=== PATIENT | female | born 1945 | race Caucasian/White ===

== ENCOUNTER 2020-10-18 07:18 | Emergency (ER) | payer MEDICARE, OTHER ==
--- NOTE | 2020-10-18 07:28 | ERPHSYRPT ---
- History of Present Illness Time Seen by Provider: 10/18/20 07:27 Source: patient Exam Limitations: no limitations Physician History: This is a 75-year-old overweight white female who has a history of coronary artery disease and in 2008 underwent a three-vessel coronary artery bypass graft. She underwent a recent cardiac catheterization in September 26[address] Khalil. She states she also sees a metal hanging supervisor by the name of Dr. Duarte in [place]. One test they recommended was a sleep study which was performed last night. The respiratory therapist noticed that the patient had a low oxygenation level on room air while sleeping measuring approximately 58%. She was placed on BiPAP. The patient states that she actually slept very well on the BiPAP and feels comfortable on oxygen. They placed her on 2 L of oxygen via nasal cannula and patient arrived to the emergency department with an oxygen saturation level on 2 L of 97 to 98%. She denies chest pain. She has chronic shortness of air. There were no specific symptoms other than the shortness of air in combination with 58% room air oxygenation level during her sleep apnea study that brought the patient to the emergency department. The patient states that that may be she has a little swelling in her feet. She has had no fever she has no muscle aches and pains. Timing/Duration: other Activities at Onset: none Severity of Dyspnea-Max: mild Severity of Dyspnea-Current: mild Possible Cause: chronic episodes Modifying Factors: Improves With: activity, exertion, oxygen (Seem to improve her symptoms of shortness of breath) Associated Symptoms: denies symptoms Allergies/Adverse Reactions: nystatin Allergy (Verified 10/18/20 07:38) HIVES Ykyczfr-Gvl-Tjj Reductase Inhibitor Allergy (Verified 10/18/20 07:38) Home Medications: Amlodipine Besylate 5 mg [Norvasc 5 mg] 5 mg PO DAILY 10/18/20 [History] Apixaban [Eliquis] 5 mg PO DAILY 10/18/20 [History] Aspirin 81 gm Chew [Baby Aspirin 81 mg Chew] 81 mg PO DAILY 10/18/20 [History] Budesonide/Formoterol Fumarate [Symbicort 160-4.5 Mcg Inhaler] 10.2 gm IH DAILY PRN PRN 10/18/20 [History] Ipratropium [place] 0.5 mg [Atrovent 0.5MG NEBULE] 0.5 mg NEB DAILY PRN PRN 10/18/20 [History] Isosorbide Dinitrate 5 mg PO DAILY 10/18/20 [History] Travel Risk - International Travel Have you traveled outside of the country in past 3 weeks: No - Coronavirus Screening Are you exhibiting any of the following symptoms?: No Close contact with a COVID-19 positive Pt in past 14-21 Days: No - Review of Systems Constitutional: No Symptoms Eyes: No Symptoms Ears, Nose, & Throat: No Symptoms Respiratory: Dyspnea Cardiac: No Symptoms Abdominal/Gastrointestinal: No Symptoms Genitourinary Symptoms: No Symptoms Musculoskeletal: No Symptoms Skin: No Symptoms Neurological: No Symptoms Psychological: No Symptoms Endocrine: No Symptoms Hematologic/Lymphatic: No Symptoms Immunological/Allergic: No Symptoms All Other Systems: Reviewed and Negative - Past Medical History Pertinent Past Medical History: Yes Neurological History: No Pertinent History ENT History: No Pertinent History Cardiac History: Other Respiratory History: Asthma Endocrine Medical History: No Pertinent History Musculoskeletal History: Osteoarthritis, Rheumatoid Arthritis, Other GI Medical History: No Pertinent History History: No Pertinent History Psycho-Social History: No Pertinent History Female Reproductive Disorders: No Pertinent History Other Medical History: Psoriatic OA, CABG x3, gallbaldder and appendix removed, B TKA - Past Surgical History Past Surgical History: Yes - Nursing Vital Signs Nursing Vital Signs: Initial Vital Signs Temperature 98.2 F 10/18/20 07:26 Pulse Rate 75 10/18/20 07:26 Respiratory Rate 25 H 10/18/20 07:26 Blood Pressure 147/91 10/18/20 07:26 O2 Sat by Pulse Oximetry 98 10/18/20 07:26 Pain Scale Pain Intensity 4 - Physical Exam General Appearance: no apparent distress, alert, anxiety, obese Eye Exam: PERRL/EOMI, eyes nml inspection Ears, Nose, Throat Exam: hearing grossly normal, normal ENT inspection, normal pharynx Neck Exam: normal inspection, non-tender, supple, full range of motion Respiratory Exam: normal breath sounds, lungs clear, airway intact, No chest tenderness, No respiratory distress Cardiovascular/Chest Exam: normal heart sounds, regular rate/rhythm Abdominal/Gastrointestinal Exam: soft, normal bowel sounds, No tenderness Rectal Exam: deferred Extremity Exam: non-tender, normal range of motion, normal inspection, normal capillary refill, no calf tenderness, no pedal edema (On examination I do not appreciate any significant foot or ankle swelling.), pelvis stable Neurologic Exam: alert, oriented x 3, cooperative, warehouse trainer II-XII nml as tested, normal mood/affect, nml cerebellar function, nml station & gait, sensation nml Skin Exam: normal color, warm, dry Lymphatic Exam: No adenopathy SpO2 Interpretation: normal O2 Delivery: Nasal Cannula (2 liters) - Course Nursing assessment & vital signs reviewed: Yes EKG Interpreted by Me: RATE (82), A-fib, Other (On today's EKG there is nonspecific intraventricular conduction delay and low voltage in the precardial leads. When compared to EKG dated 10/27/2012, there is new atrial fibrillation.) Ordered Tests: Active Orders 24 hr Category Date Time Status Greenskeeper Laborer STAT Care 10/18/20 07:29 Active EKG-ER Only STAT Care 10/18/20 07:28 Active IV Insertion STAT Care 10/18/20 07:28 Active Pulse Oximetry (ED) STAT Care 10/18/20 07:28 Active CHEST 1 VIEW (PORTABLE) Stat Exams 10/18/20 07:28 Completed NECK WITH CONTRAST [CT] Stat Exams 10/18/20 08:46 Completed BLOOD CULTURE Stat Lab 10/18/20 07:50 Received CBC W DIFF Stat Lab 10/18/20 07:30 Completed CMP Stat Lab 10/18/20 07:30 Completed D-DIMER QUANTITATIVE Stat Lab 10/18/20 07:30 Completed INFLUENZA A+B DUSTY Stat Lab 10/18/20 07:45 Completed Lactic Acid Stat Lab 10/18/20 07:28 Completed NT PRO BNP Stat Lab 10/18/20 07:30 Completed PROTIME WITH INR Stat Lab 10/18/20 07:30 Completed TROPONIN Q3H Lab 10/18/20 07:30 Completed TROPONIN Q3H Lab 10/18/20 10:30 Ordered TROPONIN Q3H Lab 10/18/20 13:30 Ordered TROPONIN Q3H Lab 10/18/20 16:30 Ordered TROPONIN Q3H Lab 10/18/20 19:30 Ordered Medication Summary Discontinued Medications Generic Name Dose Route Start Last Admin Trade Name Freq PRN Reason Stop Dose Admin Furosemide 40 mg 10/18/20 09:26 10/18/20 10:33 Lasix 40 Mg/4 Ml IV 10/18/20 09:27 40 mg STAT ONE Administration Furosemide Confirm 10/18/20 10:31 Lasix 40 Mg/4 Ml Administered 10/18/20 10:32 Dose 40 mg .ROUTE .STK-MED ONE Lab/Rad Data: Laboratory Result Diagrams 10/18/20 07:30 10/18/20 07:30 Laboratory Results 10/18/20 10/18/20 10/18/20 Range/Units 07:45 07:30 07:30 WBC (4.0-10.5) K/mm3 RBC (4.1-5.4) M/mm3 Hgb (12.0-16.0) gm/dl Hct (35-47) % MCV (78-100) fl MCH (26-32) pg MCHC (32-36) g/dl RDW (11.5-14.0) % Plt Count (150-450) K/mm3 MPV (7.5-11.0) fl Gran % (36.0-66.0) % Eos # (Auto) (0-0.5) Absolute Lymphs (auto) (1.0-4.6) Absolute Monos (auto) (0.0-1.3) Lymphocytes % (24.0-44.0) % Monocytes % (0.0-12.0) % Eosinophils % (0.00-5.0) % Basophils % (0.0-0.4) % Absolute Granulocytes (1.4-6.9) Basophils # (0-0.4) PT 15.7 H (9.95-12.35) SECONDS INR 1.38 (0.8-3.0) D-Dimer 494 (215-500) ng/mL Sodium (137-145) mmol/L Potassium (3.5-5.1) mmol/L Chloride (98-107) mmol/L Carbon Dioxide (22-30) mmol/L Anion Gap (5-15) MEQ/L BUN (7-17) mg/dL Creatinine (0.52-1.04) mg/dL Estimated GFR ML/MIN Glucose (74-106) mg/dL Lactic Acid (0.4-2.0) Calcium (8.4-10.2) mg/dL Total Bilirubin (0.2-1.3) mg/dL AST (14-36) U/L ALT (0-35) U/L Alkaline Phosphatase (38-126) U/L Troponin I 0.019 (0.000-0.034) ng/mL NT-Pro-B Natriuret Pep (0-1800) pg/mL Serum Total Protein (6.3-8.2) g/dL Albumin (3.5-5.0) g/dL Influenza Type A Ag NEGATIVE (NEGATIVE) Influenza Type B Ag NEGATIVE (NEGATIVE) 10/18/20 10/18/20 10/18/20 Range/Units 07:30 07:30 07:28 WBC 7.1 (4.0-10.5) K/mm3 RBC 4.06 L (4.1-5.4) M/mm3 Hgb 12.2 (12.0-16.0) gm/dl Hct 38.8 (35-47) % MCV 95.6 (78-100) fl MCH 30.0 (26-32) pg MCHC 31.4 L (32-36) g/dl RDW 14.4 H (11.5-14.0) % Plt Count 204 (150-450) K/mm3 MPV 11.6 H (7.5-11.0) fl Gran % 57.6 (36.0-66.0) % Eos # (Auto) 0.33 (0-0.5) Absolute Lymphs (auto) 1.83 (1.0-4.6) Absolute Monos (auto) 0.78 (0.0-1.3) Lymphocytes % 26.0 (24.0-44.0) % Monocytes % 11.1 (0.0-12.0) % Eosinophils % 4.7 (0.00-5.0) % Basophils % 0.6 (0.0-0.4) % Absolute Granulocytes 4.07 (1.4-6.9) Basophils # 0.04 (0-0.4) PT (9.95-12.35) SECONDS INR (0.8-3.0) D-Dimer (215-500) ng/mL Sodium 139 (137-145) mmol/L Potassium 3.7 (3.5-5.1) mmol/L Chloride 102 (98-107) mmol/L Carbon Dioxide 33 H (22-30) mmol/L Anion Gap 7.7 (5-15) MEQ/L BUN 10 (7-17) mg/dL Creatinine 0.61 (0.52-1.04) mg/dL Estimated GFR > 60.0 ML/MIN Glucose 100 (74-106) mg/dL Lactic Acid 0.6 (0.4-2.0) Calcium 9.4 (8.4-10.2) mg/dL Total Bilirubin 1.00 (0.2-1.3) mg/dL AST 17 (14-36) U/L ALT 11 (0-35) U/L Alkaline Phosphatase 78 (38-126) U/L Troponin I (0.000-0.034) ng/mL NT-Pro-B Natriuret Pep 935 (0-1800) pg/mL Serum Total Protein 7.7 (6.3-8.2) g/dL Albumin 3.9 (3.5-5.0) g/dL Influenza Type A Ag (NEGATIVE) Influenza Type B Ag (NEGATIVE) - Progress Progress: improved, re-examined Air Movement: good Progress Note: 10/18/20 10:42 Chest x-ray shows new mild cardio megaly, possible new lingular infiltrate versus atelectasis with a tiny effusion. CAT scan of the neck with contrast reveals bilateral prominent palatine tonsils narrowing oropharynx, negative pathologic cervical/supraclavicular adenopathy, incompletely visualized patchy left upper lobe groundglass airspace disease 10/18/20 10:44 Medical decision making: This patient has coronary artery disease and asthma. She had a sleep study which showed hypoxia during her sleep requiring BiPAP. Patient is chronically short of breath. There may be a new lingular infiltrate present. We will treat this with antibiotics. Patient does not have numeric evidence of congestive heart failure but there are some mild changes on the chest x-ray and we provided the patient with a single 40 mg intravenous dose of Lasix. I ordered CAT scan of the neck with contrast for this patient. She had this test scheduled for tomorrow but because of her symptoms and the fact that she is here in the emergency department we ordered that test and I provided her with the results. If her second troponin is normal we will discharge her to home with instruction to follow-up with her press tool maker, metal hanging supervisor and primary care physician. Blood Culture(s) Obtained: Yes Antibiotics given: No Counseled pt/family regarding: lab results, diagnosis, need for follow-up, rad results - Departure Departure Disposition: Home Clinical Impression: Infiltrate of lung present on chest x-ray Condition: Stable Critical Care Time: No Referrals: ALEXIA MICHELE NP [Primary Care Provider] - Additional Instructions: Fill your new prescription. Take all your prescription medication as prescribed. Follow-up with your press tool maker, metal hanging supervisor and your primary care physician for further management and instructions. Prescriptions: Cefdinir 300 mg PO BID 7 Days #14 capsule
[2020-10-18 07:40] LABS: Absolute Neutrophil Ct (ANC) 4.07 (1.4-6.9); BASOPHIL % 0.6 % (0.0-0.4); Basophil (Absolute #) 0.04 (0-0.4); Eosinophil % 4.7 % (0.00-5.0); Eosinophil (Absolute #) 0.33 (0-0.5); Hematocrit 38.8 % (35-47); Hemoglobin 12.2 gm/dl (12.0-16.0); Lymphocyte (Absolute #) 1.83 (1.0-4.6); Mean Cell Volume 95.6 fl (78-100); Mean Corpuscular Hgb Concent. 31.4 g/dl (32-36); Mean Platelet Volume 11.6 fl (7.5-11.0); Monocyte (Absolute #) 0.78 (0.0-1.3); Monocytes % 11.1 % (0.0-12.0); Neutrophil % 57.6 % (36.0-66.0); Platelet Count 204 K/mm3 (150-450); Red Blood Count 4.06 M/mm3 (4.1-5.4); Red Cell Distribution Width 14.4 % (11.5-14.0); White Blood Count 7.1 K/mm3 (4.0-10.5)
[2020-10-18 07:59] LABS: INR 1.38 (0.8-3.0); PROTIME 15.7 SECONDS (9.95-12.35)
[2020-10-18 08:14] LABS: ALBUMIN 3.9 g/dL (3.5-5.0); ALKALINE PHOSPHATASE 78 U/L (38-126); ANION GAP 7.7 MEQ/L (5-15); BLOOD UREA NITROGEN 10 mg/dL (7-17); CHLORIDE 102 mmol/L (98-107); Calcium 9.4 mg/dL (8.4-10.2); Carbon Dioxide 33 mmol/L (22-30); Creatinine 1 0.61 mg/dL (0.52-1.04); EST GLOMERULAR FILTRATION RATE > 60.0 ML/MIN; Glucose 100 mg/dL (74-106); NT PRO BNP 935 pg/mL (0-1800); Potassium 3.7 mmol/L (3.5-5.1); SGOT/AST 17 U/L (14-36); SGPT/ALT 11 U/L (0-35); SODIUM 139 mmol/L (137-145); Total Protein 7.7 g/dL (6.3-8.2)
[2020-10-18 08:40] LABS: INFLUENZA A NEGATIVE (NEGATIVE); INFLUENZA B NEGATIVE (NEGATIVE)
--- NOTE | 2020-10-18 09:06 | XRAY ---
Indication: Short of breath. Comparison: October 04, 2020. Portable apical lordotic chest demonstrates new cardiomegaly with new lingula infiltrate versus atelectasis and tiny effusion. Remaining chest unchanged again with incidental tiny calcified granulomas, CABG surgery, osteopenia, and bony degenerative changes.
[2020-10-18] MEDS ORDERED: Lasix 40 MG/4 ML IV ONE (09:26)
--- NOTE | 2020-10-18 10:27 | XRAY ---
Indication: Neck pain. Bilateral neck nodules. Multiple contiguous axial images obtained through the neck using 80 cc Isovue 370 contrast. Bilateral cutaneous BBs placed over the region of interest. Comparison: None Left and right cutaneous BBs are seen at the level of the submandibular gland where there is no underlying solid/cystic mass or abnormal fluid collection. Scattered centimeter/subcentimeter cervical nodes seen bilaterally. No pathologic cervical or supraclavicular lymphadenopathy. Parotid and submandibular glands are bilaterally symmetric. Thyroid gland is unremarkable. Major arteries and veins are normal in course and caliber with mild bilateral carotid and left vertebral artery calcifications. Prominent bilateral palatine tonsils narrows the oropharynx. Remaining supra and infraglottic airway widely patent. Normal epiglottis. Cervical spine intact with mild osteopenia and mild/moderate C5-T1 degenerative changes. Base of the brain unremarkable. Visualized paranasal sinuses and mastoid air cells are clear. Lung apices demonstrates incompletely visualized patchy left upper lobe groundglass airspace opacity anteriorly. Impression: 1. Bilaterally prominent palatine tonsils narrows the oropharynx. 2. Negative pathologic cervical/supraclavicular lymphadenopathy. 3. Incompletely visualized patchy left upper lobe groundglass airspace disease. 4. Incidental osteopenia and C5-T1 degenerative changes.
[2020-10-18] MEDS ORDERED: Lasix 40 MG/4 ML ONE (10:31)
[2020-10-18 12:50] VITALS: BP 128/80; PULSE 79; O2SAT 91
== END 2020-10-18 13:18 | disposition home or self-care (01) ==
LOC: ED 07:18
DX: J18.9 Pneumonia, unspecified organism (principal); R09.02 Hypoxemia; I25.10 Atherosclerotic heart disease of native coronary artery without angina pectoris; Z95.1 Presence of aortocoronary bypass graft; Z79.899 Other long term (current) drug therapy; J45.909 Unspecified asthma, uncomplicated
CPT/HCPCS: 36000; 36415; 70491; 71045; 80053; 83605; 83880; 84484; 85025; 85379; 85610; 87040; 87400; 93005; 93041; 94760; 96374; 99284; J1940

== ENCOUNTER 2020-12-02 14:41 | Emergency (ER) | payer MEDICARE, OTHER ==
[2020-12-02 15:02] VITALS: O2SAT 99
--- NOTE | 2020-12-02 15:34 | XRAY ---
Indication: Left jewish/left neck pain. History of multiple falls. Multiple contiguous axial images obtained through the head without contrast. Comparison: None Age-appropriate global atrophy and moderate periventricular degenerative micro-ischemia bilaterally. No acute intracranial hemorrhage, abnormal extra-axial fluid collection, or mass effect. Fourth ventricle is midline without hydrocephalus. Bony calvarium intact. Visualized paranasal sinuses and mastoid air cells are clear. Impression: Nonacute senile brain.
--- NOTE | 2020-12-02 15:38 | XRAY ---
Indication: Headache and neck pain. Multiple contiguous ex images obtained through the cervical spine. Sagittal and coronal reformatted images obtained. Comparison: CT neck October 18, 2020. Osseous structures remain demineralized. Stable nonunited posterior arch C1, normal variant. Also stable minimal/mild C3- C7 degenerative endplate spurring and moderate multilevel bilateral degenerative facet hypertrophy. No acute fracture, suspicious bony lesions, or spinal canal stenosis. Sagittal and coronal reformatted images again demonstrates normal alignment with C5-C7 disc space narrowing and remote T3 superior endplate fracture. No acute compression fracture, subluxation, or jumped facet. Normal appearing query cervical junction. Visualized noncontrasted soft tissues again demonstrates mild bilateral carotid and distal left vertebral artery calcifications. Lung apices degraded by respiration artifact. Impression: 1. Stable osteopenia, multilevel degenerative changes, and remote T3 superior endplate fracture. 2. Negative acute fracture/subluxation.
--- NOTE | 2020-12-02 15:40 | ERPHSYRPT ---
- History of Present Illness Time Seen by Provider: 12/02/20 14:45 Patient Subjective Stated Complaint: Headache Triage Nursing Assessment: Patient ambulated back to ED and transferred self to bed. Patient A+o X3. Patient's skin pink, warm and dry. Patient complains of pain to back of left side of head that goes into her left ear and left jaw occasionally for the past week that has gotten worse. Patient's left eye noted to be red. Patient currently denies pain or discomfort. Physician History: 75 years old female with history of hypertension, hyperlipidemia, atrial fibrillation on Eliquis presented in the ER with chief complaint of left occipital/mastoid area sharp throbbing pain which last for 1 to 2 seconds off and on for 1 week. Patient reports occasionally she has pain in the left temporal area and also shoots in the left TMJ area as well. Patient reports having difficulty movements of jaw because of pain in the TMJ area. Denies any tinnitus, earache, visual disturbance, numbness tingling or focal weakness. Patient currently does not have any pain. She denies any chest pain palpitations or shortness of breath. Denies any associated nausea or vomiting. Patient does have some redness of left eye sclera which according to her it is improving now for the last 2 weeks without any visual symptoms. No pain in the eyeball. Timing/Duration: week(s) (1), intermittent, sudden, improved Quality: sharpness, throbbing Head Pain Location: occipital, parietal Severity of Pain-Max: severe Severity of Pain-Current: none Recent Head Trauma: no recent headache/trauma Associated Symptoms: facial pain, neck pain, No numbness in legs/feet, No sinus infection, No sensitive to light, No speech problems, No stiff neck, No vision changes, No visual disturbance, No weakness Previous symptoms: no prior history Allergies/Adverse Reactions: nystatin Allergy (Verified 12/02/20 14:55) HIVES Abrzgeq-Qro-Uke Reductase Inhibitor Allergy (Verified 12/02/20 14:55) Home Medications: Amlodipine Besylate 5 mg [Norvasc 5 mg] 5 mg PO DAILY 10/18/20 [History] Apixaban [Eliquis] 5 mg PO DAILY 10/18/20 [History] Aspirin 81 gm Chew [Baby Aspirin 81 mg Chew] 81 mg PO DAILY 10/18/20 [History] Isosorbide Dinitrate 30 mg PO DAILY 10/18/20 [History] Ezetimibe 10 mg [Zetia 10 MG] 10 mg PO DAILY 12/02/20 [History] Furosemide 40 mg [Lasix 40 MG] 40 mg PO DAILY 12/02/20 [History] Metoprolol Tartrate 25 mg [Lopressor 25MG Tab] 25 mg PO DAILY 12/02/20 [History] Omeprazole 20 mg PO BID 12/02/20 [History] Potassium Chloride 10 Meq Tab* [Klor Con 10 MEQ] 10 meq PO DAILY 12/02/20 [History] Hx Tetanus, Diphtheria Vaccination/Date Given: Yes Hx Influenza Vaccination/Date Given: No Hx Pneumococcal Vaccination/Date Given: Yes Immunizations Up to Date: Yes Travel Risk - International Travel Have you traveled outside of the country in past 3 weeks: No - Coronavirus Screening Are you exhibiting any of the following symptoms?: No Close contact with a COVID-19 positive Pt in past 14-21 Days: No - Review of Systems Constitutional: No Symptoms Eyes: Eye Redness Ears, Nose, & Throat: No Symptoms Respiratory: No Symptoms Cardiac: No Symptoms Abdominal/Gastrointestinal: No Symptoms Genitourinary Symptoms: No Symptoms Musculoskeletal: Neck Pain Skin: No Symptoms Neurological: Headache Psychological: No Symptoms Endocrine: No Symptoms Hematologic/Lymphatic: No Symptoms Immunological/Allergic: No Symptoms - Past Medical History Pertinent Past Medical History: Yes Neurological History: No Pertinent History ENT History: No Pertinent History Cardiac History: Other Respiratory History: Asthma Endocrine Medical History: No Pertinent History Musculoskeletal History: Osteoarthritis, Rheumatoid Arthritis, Other GI Medical History: No Pertinent History History: No Pertinent History Psycho-Social History: No Pertinent History Female Reproductive Disorders: No Pertinent History Other Medical History: Psoriatic OA, CABG x3, gallbaldder and appendix removed, B TKA - Past Surgical History Past Surgical History: Yes Cardiac: CABG, Cardiac Catheterization Gastrointestinal: Appendectomy, Cholecystectomy, Hernia Repair Musculoskeletal: Joint Replacement, Orthopedic Surgery Female Surgical History: Hysterectomy, Section Other Surgical History: bilateral knees, L wrist with plate - Social History Smoking Status: Never smoker Exposure to second hand smoke: No Drug Use: none Patient Lives Alone: No - Female History Hx Now: No - Nursing Vital Signs Nursing Vital Signs: Initial Vital Signs Temperature 98.1 F 12/02/20 14:55 Pulse Rate 68 12/02/20 14:55 Respiratory Rate 18 12/02/20 14:55 Blood Pressure 142/100 12/02/20 14:55 O2 Sat by Pulse Oximetry 99 12/02/20 14:55 Pain Scale Pain Intensity 0 - Physical Exam General Appearance: no apparent distress, alert Eye Exam: PERRL/EOMI, other (Mild subconjunctival hemorrhage in the left eyeball above the cornea) Ears, Nose, Throat Exam: normal ENT inspection, TMs normal, pharynx normal, other (Tenderness left TMJ on palpation with no click) Neck Exam: normal inspection, supple, full range of motion, other (Minimal tenderness in the left upper lateral neck muscles around mastoid area), No Brudzinski, No Kernig's, No midline tenderness Respiratory Exam: normal breath sounds, lungs clear Cardiovascular Exam: normal heart sounds, irregular Gastrointestinal/Abdominal Exam: soft, normal bowel sounds, No tenderness Back Exam: normal inspection, normal range of motion Extremity Exam: normal inspection, normal range of motion Mental Status Exam: alert, oriented x 3, cooperative bee tender Exam: normal hearing, normal speech, PERRL Coordination/Gait Exam: normal finger to nose, normal gait, normal cerebellar function, negative Romberg's sign Motor/Sensory Exam: no motor deficit, no sensory deficit, no pronator drift, negative Babinski's sign DTR Exam: bicep (R): 2+, bicep (L): 2+, knee (R): 2+, knee (L): 2+ Skin Exam: normal color Lymphatic Exam: adenopathy SpO2 Interpretation: normal SpO2: 99 O2 Delivery: Room Air Ordered Tests: Active Orders 24 hr Category Date Time Status CERVICAL SPINE WO CONTRAST [CT] Stat Exams 12/02/20 15:12 Completed HEAD WITHOUT CONTRAST [CT] Stat Exams 12/02/20 15:12 Completed - Progress Progress: re-examined Air Movement: good Progress Note: 12/02/20 16:22 75 years old is evaluated for left upper neck/mastoid area pain and some pain in the left temporal mandibular joint area. I have obtained CT head neck which is negative for any acute findings. I believe patient has some TMJ dysfunction and recommended outpatient dental follow-up. She also has some pain probably related to neck muscles. Recommended Tylenol. She does not have any chest pain palpitations or shortness of breath. This seems to be musculoskeletal pain, do not think cardiac in nature at all. This point do not think patient needs any other work-up and is stable for discharge with outpatient follow-up. Blood Culture(s) Obtained: No Antibiotics given: No Counseled pt/family regarding: diagnosis, need for follow-up, rad results - Departure Departure Disposition: Home Clinical Impression: Neck pain, TMJ pain dysfunction syndrome Condition: Stable Critical Care Time: No Referrals: ALEXIA MICHELE NP [Primary Care Provider] - Follow Up with PCP/3 days MEAGHAN BISWAS DDS [NON-STAFF PHY W/O PRIVILEGES] - (Call for appointment early next week) Instructions: Headache, Adult (DC) Additional Instructions: Take Tylenol as needed for pain. Follow-up with primary care and dentist for reevaluation. Do not take any NSAIDs like ibuprofen/Aleve etc. as it increases risk of bleeding being on Eliquis and aspirin. Return to ER for worsening pain, headache, difficulty movements of neck etc.
[2020-12-02 16:17] VITALS: BP 116/67; PULSE 61
== END 2020-12-02 16:32 | disposition home or self-care (01) ==
LOC: ED 14:41
DX: M54.2 Cervicalgia (principal); M26.69 Other specified disorders of temporomandibular joint; I10 Essential (primary) hypertension; E78.5 Hyperlipidemia, unspecified; I48.91 Unspecified atrial fibrillation; Z79.01 Long term (current) use of anticoagulants; R51.9 Headache, unspecified; Z79.899 Other long term (current) drug therapy; Z98.61 Coronary angioplasty status; Z95.1 Presence of aortocoronary bypass graft
CPT/HCPCS: 70450; 72125; 99283

== ENCOUNTER 2024-02-04 18:39 | Observation (INO) | payer MEDICARE, OTHER ==
[2024-02-04 19:16] LABS: Absolute Neutrophil Ct (ANC) 5.68 x10^3/uL (1.4-6.9); BASOPHIL % 0.8 % (0.0-0.4); Basophil (Absolute #) 0.07 x10^3/uL (0-0.4); Eosinophil % 4.2 % (0.00-5.0); Eosinophil (Absolute #) 0.36 x10^3/uL (0-0.5); Hematocrit 38.9 % (35-47); Hemoglobin 12.8 g/dL (12.0-16.0); IMMATURE GRAN # 0.03 x10^3u/L (0.00-0.03); IMMATURE GRAN % 0.3 % (0.00-0.4); Lymphocyte (Absolute #) 1.72 x10^3/uL (1.0-4.6); Lymphocytes % 19.9 % (24.0-44.0); Mean Cell Volume 91.1 fL (78-100); Mean Corpuscular Hgb Concent. 32.9 g/dL (32-36); Mean Platelet Volume 11.1 fL (7.5-11.0); Monocyte (Absolute #) 0.77 x10^3/uL (0.0-1.3); Monocytes % 8.9 % (0.0-12.0); Neutrophil % 65.9 % (36.0-66.0); Platelet Count 207 x10^3/uL (150-450); Red Blood Count 4.27 x10^6/uL (4.1-5.4); White Blood Count 8.6 x10^3/uL (4.0-10.5)
[2024-02-04 19:29] LABS: ALBUMIN 4.2 g/dL (3.5-5.0); ANION GAP 12.7 MEQ/L (5-15); BILIRUBIN,TOTAL 1.3 mg/dL (0.2-1.3); Calcium 9.8 mg/dL (8.4-10.2); Creatinine 1 1.07 mg/dL (0.52-1.04); EST GLOMERULAR FILTRATION RATE 52.8 ML/MIN; Potassium 3.5 mmol/L (3.5-5.1); Total Protein 8.1 g/dL (6.3-8.2)
--- NOTE | 2024-02-04 20:20 | ERPHSYRPT ---
- History of Present Illness Time Seen by Provider: 02/04/24 18:50 Source: patient Exam Limitations: no limitations Patient Subjective Stated Complaint: BACK PAIN Triage Nursing Assessment: PATIENT REPORTS TO ER WITH COMPLAINTS OF BACK PAIN WHICH STARTED ABOUT A MONTH AGO. PATIENT RATING THE PAIN 8/10 AT THIS TIME TO LEFT SHOULDER/MID BACK. PATIENT WAS SEEN BY PCP AND HOSPITAL IN [place] BUT RELOCATED TO THIS AREA THIS PAST WEEKEND. PATIENT WAS PRESCRIBED PO PRN TORADOL FOR THE PAIN IN [place] AND STATES SHE TOOK HER LAST PILL YESTERDAY AND TODAY THE PAIN HAS BEEN HORRIBLE. PATIENT PRESENTS WITH FACIAL GRIMACING AND STATES SHE CANNOT LAY DOWN ON THE BED. PATIENT SITTING UPRIGHT 90 DEGREES. PATIENT REPORTS SHE HAS BEEN SLEEPING SITTING UPRIGHT IN [facility]CL[facility] OVER THE LAST MONTH. PATIENT STATES THAT SHE HAD CHEST X RAY SHOWING "LUNG SWELLING" WHILE IN [place] WHEN CHEST PAIN FIRST STARTED. PATIENT DOES APPEAR TO BE SHORT OF BREATH BUT REPORTS THAT SHE IS NORMALLY SHORT OF BREATH AFTER EXERTION. O2 SATS 95% ON ROOM AIR. PATIENT IS ALERT & ORIENTED X 3 AND AMBULATED WITH STAND BY ASSIST. Physician History: Patient is a 78-year-old female presents to our ED as a referral from [facility] for a CTA chest. Patient went to [facility] today for back pain. Patient was observed to be short of breath. Patient has not been taking her anticoagulation medication as prescribed. No associated nausea vomiting diaphoresis. Patient voices no other complaints or concerns at this time. Portions of this note were created with voice recognition technology. There may be grammatical, spelling, punctuation or sound alike errors \\ Timing/Duration: today Severity: moderate Modifying Factors: Improves With: nothing Associated Symptoms: denies symptoms Allergies/Adverse Reactions: carvedilol Allergy (Verified 02/04/24 19:00) nystatin Allergy (Verified 02/04/24 18:57) HIVES simvastatin [From Zocor] Allergy (Verified 02/04/24 19:00) Yrplhes-IMW-LsR Reductase Inhibitor [Dvqdfob-Fbv-Ihj Reductase Inhibitor] Allergy (Verified 02/04/24 18:57) Home Medications: Amlodipine Besylate 5 mg [Norvasc 5 mg] 5 mg PO DAILY 10/18/20 [History] Apixaban [Eliquis] 5 mg PO DAILY 10/18/20 [History] Aspirin 81 gm Chew [Baby Aspirin 81 mg Chew] 81 mg PO DAILY 10/18/20 [History] Isosorbide Dinitrate 30 mg PO DAILY 10/18/20 [History] Ezetimibe 10 mg [Zetia 10 MG] 10 mg PO DAILY 12/02/20 [History] Furosemide 40 mg [Lasix 40 MG] 40 mg PO DAILY 12/02/20 [History] Metoprolol Tartrate 25 mg [Lopressor 25MG Tab] 25 mg PO DAILY 12/02/20 [History] Omeprazole 20 mg PO BID 12/02/20 [History] Potassium Chloride Tab* [Klor Con] 10 meq PO DAILY 12/02/20 [History] Hx Tetanus, Diphtheria Vaccination/Date Given: Yes Hx Influenza Vaccination/Date Given: No Hx Pneumococcal Vaccination/Date Given: No Travel Risk - International Travel Have you traveled outside of the country in past 3 weeks: No - Emerging Infectious Disease Are you exhibiting symptoms associated with any current EIDs: No - Review of Systems Constitutional: No Symptoms, No Fever, No Chills Eyes: No Symptoms Ears, Nose, & Throat: No Symptoms Respiratory: No Symptoms, No Cough, No Dyspnea Cardiac: No Symptoms, No Chest Pain, No Edema, No Syncope Abdominal/Gastrointestinal: No Symptoms, No Abdominal Pain, No Nausea, No V omiting, No Diarrhea Genitourinary Symptoms: No Symptoms, No Dysuria Musculoskeletal: No Symptoms, No Back Pain, No Neck Pain Skin: No Symptoms, No Rash Neurological: No Symptoms, No Dizziness, No Focal Weakness, No Sensory Changes Psychological: No Symptoms Endocrine: No Symptoms Hematologic/Lymphatic: No Symptoms Immunological/Allergic: No Symptoms All Other Systems: Reviewed and Negative - Past Medical History Pertinent Past Medical History: Yes Neurological History: No Pertinent History ENT History: No Pertinent History Cardiac History: Congestive Heart Failure, High Cholesterol, Hypertension, Other Respiratory History: Asthma Endocrine Medical History: No Pertinent History Musculoskeletal History: Osteoarthritis, Rheumatoid Arthritis, Other GI Medical History: No Pertinent History History: No Pertinent History Psycho-Social History: No Pertinent History Female Reproductive Disorders: No Pertinent History Other Medical History: Psoriatic OA, CABG x3, gallbaldder and appendix removed, B TKA - Past Surgical History Past Surgical History: Yes Cardiac: CABG, Cardiac Catheterization Gastrointestinal: Appendectomy, Cholecystectomy, Hernia Repair Musculoskeletal: Joint Replacement, Orthopedic Surgery Female Surgical History: Hysterectomy, Section Other Surgical History: bilateral knees, L wrist with plate - Social History Smoking Status: Never smoker Exposure to second hand smoke: No Drug Use: none Patient Lives Alone: No - Nursing Vital Signs Nursing Vital Signs: Initial Vital Signs Temperature 98.7 F 02/04/24 18:46 Pulse Rate 77 02/04/24 18:46 Respiratory Rate 22 02/04/24 18:46 Blood Pressure 182/83 02/04/24 18:46 O2 Sat by Pulse Oximetry 93 L 02/04/24 18:46 Pain Scale Pain Intensity 8 - Physical Exam General Appearance: no apparent distress, alert Eye Exam: PERRL/EOMI, eyes nml inspection Ears, Nose, Throat Exam: normal ENT inspection, TMs normal, pharynx normal, moist mucous membranes Neck Exam: normal inspection, non-tender, supple, full range of motion Respiratory Exam: normal breath sounds, lungs clear, airway intact, No respiratory distress Cardiovascular Exam: regular rate/rhythm, normal heart sounds, normal peripheral pulses Gastrointestinal/Abdomen Exam: soft, normal bowel sounds, No tenderness, No mass Back Exam: normal inspection, normal range of motion, No CVA tenderness, No vertebral tenderness Extremity Exam: normal inspection, normal range of motion, pelvis stable Neurologic Exam: alert, oriented x 3, cooperative, normal mood/affect, sensation nml, No motor deficits Skin Exam: normal color, warm, dry, No rash Lymphatic Exam: No adenopathy SpO2 Interpretation: normal SpO2: 94 O2 Delivery: Room Air - Course Nursing assessment & vital signs reviewed: Yes EKG Interpreted by Me: RATE (69), A-fib, NORMAL AXIS, NORMAL INTERVALS - CT Exams Chest CT Interpretation: Tele-radiologist Report (No comps. Negative PE. Prominent left and right main pulmonary arteries up to 3.3 cm favors pulmonary hypertension. Cardiomegaly without CHF. Small hiatal hernia) Ordered Tests: Active Orders 24 hr Category Date Time Status [employer] STAT Care 02/04/24 18:58 Active EKG-ER Only STAT Care 02/04/24 18:56 Active IV Insertion STAT Care 02/04/24 18:56 Active Pulse Oximetry (ED) STAT Care 02/04/24 18:56 Active CHEST WITH CONTRAST [CT] Stat Exams 02/04/24 18:57 Taken CBC W DIFF Stat Lab 02/04/24 19:10 Completed CMP Stat Lab 02/04/24 19:10 Completed TROPONIN Q4H Lab 02/04/24 19:10 Completed TROPONIN Q4H Lab 02/04/24 22:15 Completed TROPONIN Q4H Lab 02/05/24 03:00 Ordered UA W/RFX UR CULTURE Stat Lab 02/04/24 20:30 Completed Transfer Order Routine Transfer 02/04/24 Ordered Medication Summary Discontinued Medications Generic Name Dose Route Start Last Admin Trade Name Maynor PRN Reason Stop Dose Admin Ketorolac Tromethamine 30 mg 02/04/24 21:12 02/04/24 21:14 Ketorolac Tromethamine 30 Mg/Ml Inj IV 02/04/24 21:13 30 mg STAT ONE Administration Ketorolac Tromethamine Confirm 02/04/24 21:13 Ketorolac Tromethamine 30 Mg/Ml Inj Administered 02/04/24 21:14 Dose 30 mg .ROUTE .[employer] ONE Lab/Rad Data: Laboratory Result Diagrams 02/04/24 19:10 02/04/24 19:10 Laboratory Results 02/04/24 02/04/24 02/04/24 Range/Units 22:15 20:30 19:10 WBC (4.0-10.5) x10^3/uL RBC (4.1-5.4) x10^6/uL Hgb (12.0-16.0) g/dL Hct (35-47) % MCV (78-100) fL MCH (26-32) pg MCHC (32-36) g/dL RDW (11.5-14.0) % Plt Count (150-450) x10^3/uL MPV (7.5-11.0) fL Gran % (36.0-66.0) % Immature Gran % (Auto) (0.00-0.4) % Nucleat RBC Rel Count (0.00-0.1) % Eos # (Auto) (0-0.5) x10^3/uL Immature Gran # (Auto) (0.00-0.03) x10^3u/L Absolute Lymphs (auto) (1.0-4.6) x10^3/uL Absolute Monos (auto) (0.0-1.3) x10^3/uL Absolute Nucleated RBC (0.00-0.01) x10^3u/L Lymphocytes % (24.0-44.0) % Monocytes % (0.0-12.0) % Eosinophils % (0.00-5.0) % Basophils % (0.0-0.4) % Absolute Granulocytes (1.4-6.9) x10^3/uL Basophils # (0-0.4) x10^3/uL Sodium (135-145) mmol/L Potassium (3.5-5.1) mmol/L Chloride (98-107) mmol/L Carbon Dioxide (22-30) mmol/L Anion Gap (5-15) MEQ/L BUN (7-17) mg/dL Creatinine (0.52-1.04) mg/dL Estimated GFR ML/MIN Glucose (74-106) mg/dL Calcium (8.4-10.2) mg/dL Total Bilirubin (0.2-1.3) mg/dL AST (14-36) U/L ALT (0-35) U/L Alkaline Phosphatase (38-126) U/L Troponin I 0.018 0.016 (0.000-0.033) ng/mL Serum Total Protein (6.3-8.2) g/dL Albumin (3.5-5.0) g/dL Urine Color Yellow (Yellow) Urine Appearance Clear (Clear) Urine pH 7.0 (4.6-8.0) Ur Specific [place] 1.010 (1.005-1.030) Urine Protein Negative (Negative) Urine Glucose (UA) Negative (Negative) mg/dL Urine Ketones Trace A (Negative) Urine Blood Negative (Negative) Urine Nitrite Negative (Negative) Urine Bilirubin Negative (Negative) Urine Urobilinogen 0.2 (0.2) mg/dL Ur Leukocyte Esterase Negative (Negative) U Hyaline Cast (Auto) NONE SEEN (0-2) /LPF Urine Microscopic RBC 0-2 (0-5) /HPF Urine Microscopic WBC 0-2 (0-5) /HPF Ur Epithelial Cells None Seen (None Seen) /HPF Urine Bacteria None Seen (None Seen) /HPF Urine Culture Reflexed NO (NO) 02/04/24 02/04/24 Range/Units 19:10 19:10 WBC 8.6 (4.0-10.5) x10^3/uL RBC 4.27 (4.1-5.4) x10^6/uL Hgb 12.8 (12.0-16.0) g/dL Hct 38.9 (35-47) % MCV 91.1 (78-100) fL MCH 30.0 (26-32) pg MCHC 32.9 (32-36) g/dL RDW 14.0 (11.5-14.0) % Plt Count 207 (150-450) x10^3/uL MPV 11.1 H (7.5-11.0) fL Gran % 65.9 (36.0-66.0) % Immature Gran % (Auto) 0.3 (0.00-0.4) % Nucleat RBC Rel Count 0.0 (0.00-0.1) % Eos # (Auto) 0.36 (0-0.5) x10^3/uL Immature Gran # (Auto) 0.03 (0.00-0.03) x10^3u/L Absolute Lymphs (auto) 1.72 (1.0-4.6) x10^3/uL Absolute Monos (auto) 0.77 (0.0-1.3) x10^3/uL Absolute Nucleated RBC 0.00 (0.00-0.01) x10^3u/L Lymphocytes % 19.9 L (24.0-44.0) % Monocytes % 8.9 (0.0-12.0) % Eosinophils % 4.2 (0.00-5.0) % Basophils % 0.8 (0.0-0.4) % Absolute Granulocytes 5.68 (1.4-6.9) x10^3/uL Basophils # 0.07 (0-0.4) x10^3/uL Sodium 141 (135-145) mmol/L Potassium 3.5 (3.5-5.1) mmol/L Chloride 104 (98-107) mmol/L Carbon Dioxide 28 (22-30) mmol/L Anion Gap 12.7 (5-15) MEQ/L BUN 18 H (7-17) mg/dL Creatinine 1.07 H (0.52-1.04) mg/dL Estimated GFR 52.8 ML/MIN Glucose 95 (74-106) mg/dL Calcium 9.8 (8.4-10.2) mg/dL Total Bilirubin 1.30 (0.2-1.3) mg/dL AST 20 (14-36) U/L ALT 17 (0-35) U/L Alkaline Phosphatase 89 (38-126) U/L Troponin I (0.000-0.033) ng/mL Serum Total Protein 8.1 (6.3-8.2) g/dL Albumin 4.2 (3.5-5.0) g/dL Urine Color (Yellow) Urine Appearance (Clear) Urine pH (4.6-8.0) Ur Specific [place] (1.005-1.030) Urine Protein (Negative) Urine Glucose (UA) (Negative) mg/dL Urine Ketones (Negative) Urine Blood (Negative) Urine Nitrite (Negative) Urine Bilirubin (Negative) Urine Urobilinogen (0.2) mg/dL Ur Leukocyte Esterase (Negative) U Hyaline Cast (Auto) (0-2) /LPF Urine Microscopic RBC (0-5) /HPF Urine Microscopic WBC (0-5) /HPF Ur Epithelial Cells (None Seen) /HPF Urine Bacteria (None Seen) /HPF Urine Culture Reflexed (NO) - Progress Progress: improved Progress Note: 78-year-old female presents to our ED for evaluation of progressive back pain. Patient initially went to [facility]. She was sent to our ED to rule out PE. CTA chest negative for PE but revealed findings suggestive of pulmonary hypertension. Patient initial troponin 0.016 then 0.018. These are both technically normal however slightly uptrending. Case discussed with hospitalist Dr. Flynn who accepts admission to observation at 10:58 PM. Plan of care discussed with patient. Patient agrees to admission to [facility] for further evaluation and treatment. Patient is currently on Eliquis Portions of this note were created with voice recognition technology. There may be grammatical, spelling, punctuation or sound alike errors Complexity problem addressed is moderate acute complicated No critical care time Complex of data reviewed and analyzed is extensive. Test ordered test reviewed results analyzed and correlated clinically with history and physical examination. Management discussed with hospitalist who accepts admission to observation. Risk of complication and or risk morbidity/mortality of patient management is high. Patient requires hospitalization for further evaluation and treatment. Vital stable. Time spent to admit patient is approximately 20 minutes. Plan of care established for shared decision making. No social determinants of health present impede follow-up. Portions of this note were created with voice recognition technology. There may be grammatical, spelling, punctuation or sound alike errors 02/04/24 22:56 02/04/24 23:00 Counseled pt/family regarding: lab results, diagnosis, rad results - Departure Departure Disposition: Observation Clinical Impression: Back pain, Pulmonary hypertension, Cardiomegaly, Hiatal hernia, ACS (acute coronary syndrome) Condition: Stable Critical Care Time: No Referrals: ALEXIA MICHELE NP [Primary Care Provider] - Follow up/PCP as directed
[2024-02-04 20:50] LABS: Appearance Clear (Clear); Bacteria None Seen /HPF (None Seen); Bilirubin Negative (Negative); Blood Negative (Negative); Epithelial Cells None Seen /HPF (None Seen); Glucose, Urine Negative (Negative); Hyaline Casts NONE SEEN /LPF (0-2); Ketones Trace (Negative); Leukocyte Esterase Negative (Negative); Nitrite Negative (Negative); Protein,Urine Dip Negative (Negative); RBC 0-2 /HPF (0-5); Urobilinogen 0.2 mg/dL (0.2); WBC 0-2 /HPF (0-5)
[2024-02-04 20:54] LABS: ADD URINE CULTURE? NO (NO)
[2024-02-04] MEDS ORDERED: TORAdol 30 mg Injection ONE (21:13)
[2024-02-04] MEDS: TORAdol 30 mg Injection IV ONE (21:14)
[2024-02-04] MEDS ORDERED: NITRO-BID 2% UD PACKETS ONE (23:18)
[2024-02-04] MEDS ORDERED: BABY ASPIRIN 81 MG CHEW ONE (23:18)
[2024-02-04] MEDS: NITRO-BID 2% UD PACKETS TOP ONE (23:21)
[2024-02-04] MEDS: BABY ASPIRIN 81 MG CHEW PO ONE (23:21)
--- NOTE | 2024-02-05 00:18 | PCM.HP ---
History of Present Illness - Chief Complaint Chief Complaint: shortness of breath Date: 02/04/24 History of Present Illness: Ms. HOLBROOK is a 78 year old female with a past medical history significant for hypertension, hyperlipidemia and some shortness of breath/chest pain that she was given Toradol and told she had some lung swelling while in [place] but then moved up to the area. She presents with complaints of persistent chest pain rated 8/10 in severity accompanied by shortness of breath with exertion. She underwent CTA chest and there is concern about possible new pulmonary hypertension. She is resting in bed in the ER, awake/alert but having continued pain and shortness of breath but O2 sat appears to be 95% on room air. No fever/chills. No nausea, vomiting or diarrhea. No dysuria, hematuria or urgency. - Review of Systems Constitutional: No Fever, No Chills Eyes: No Vision Changes Ears, Nose, & Throat: No Painful Swallowing Respiratory: Short Of Breath, No Cough, No Orthopnea, No Stridor Cardiac: Chest Pain, No Edema, No Palpitations Abdominal/Gastrointestinal: No Abdominal Pain, No Nausea, No Vomiting Genitourinary Symptoms: No Dysuria, No Frequency, No Hematuria Musculoskeletal: No Back Pain, No Neck Pain Skin: No Cellulitis, No Rash Neurological: No Dizziness, No Focal Weakness, No Gait Changes Psychological: No Suicidal Ideations Endocrine: No Polyuria, No Polydipsia Medications & Allergies Home Medications: Home Medication List Apixaban [Eliquis] 5 mg PO BID 10/18/20 [History Confirmed 02/04/24] Isosorbide Dinitrate 60 mg PO DAILY 10/18/20 [History Confirmed 02/04/24] Ezetimibe 10 mg [Zetia 10 MG] 10 mg PO DAILY 12/02/20 [History Confirmed 02/04/24] Furosemide 40 mg [Lasix 40 MG] 40 mg PO DAILY 12/02/20 [History Confirmed 02/04/24] Metoprolol Tartrate 25 mg [Lopressor 25MG Tab] 25 mg PO DAILY 12/02/20 [History Confirmed 02/04/24] Albuterol 2.5 mg/3 ml Neb [Proventil 2.5 mg/3 ml Neb] 2.5 mg NEB Q6-8HPRN PRN 02/04/24 [History Confirmed 02/04/24] Albuterol Sulfate [Proair Digihaler] 2 puffs IH Q6HPRN PRN 02/04/24 [History Confirmed 02/04/24] Apremilast [Otezla] 30 mg PO HS 02/04/24 [History Confirmed 02/04/24] Brimonidine Tartrate [Lumify] 1 drop DROPS UD 02/04/24 [History Confirmed 02/04/24] Cetirizine HCl [Zyrtec] 10 mg PO HS 02/04/24 [History Confirmed 02/04/24] Dorzolamide HCl/Timolol Maleat [Dorzolamide-Timolol Eye Drops] 1 drop DROPS UD 02/04/24 [History Confirmed 02/04/24] Netarsudil Mesylate [Rhopressa] 1 drop DROPS UD 02/04/24 [History Confirmed 02/04/24] Nitroglycerin 0.4 mg SL Q5MIN PRN MR X 3 PRN 02/04/24 [History Confirmed 02/04/24] Tiotropium [place] Inhaler [Spiriva 18 Mcg/Cap Inhaler] 2 puffs IH DAILY 02/04/24 [History Confirmed 02/04/24] Allergies/Adverse Reactions: Allergies Allergy/AdvReac Type Severity Reaction Status Date / Time carvedilol Allergy Verified 02/04/24 19:00 nystatin Allergy Verified 02/04/24 18:57 simvastatin [From Zocor] Allergy Verified 02/04/24 19:00 Rikvqej-CFJ-RgD Reductase Allergy Verified 02/04/24 18:57 Inhibitor [Obvcjgw-Xpy-Uzh Reductase Inhibitor] - Past Medical History Past Medical History: Yes Neurological History: No Pertinent History ENT History: No Pertinent History Cardiac History: Congestive Heart Failure, High Cholesterol, Hypertension, Other Respiratory History: Asthma Endocrine Medical History: No Pertinent History Musculoskelatal History: Osteoarthritis, Rheumatoid Arthritis, Other GI Medical History: No Pertinent History History: No Pertinent History Pyscho-Social History: No Pertinent History Reproductive Disorders: No Pertinent History Comment: Psoriatic OA, CABG x3, gallbaldder and appendix removed, B TKA - Past Surgical History Past Surgical History: Yes Cardiac History: CABG, Cardiac Catheterization GI Surgical History: Appendectomy, Cholecystectomy, Hernia Repair Musculskeletal Surgical Hx: Joint Replacement, Orthopedic Surgery Female Surgical History: Hysterectomy, Section Other Surgical History: bilateral knees, L wrist with plate - Social History Smoking Status: Never smoker Exposure to second hand smoke: No Alcohol: None Drug Use: none - Social Determinants of Health Will the patient participate in the screening: Declined to provide - Physical Exam Vital Signs: Vital Signs - 24 hr Temp Pulse Resp BP BP Pulse Ox 02/05/24 00:00 49 L 17 139/73 99 02/04/24 23:30 68 19 150/78 97 02/04/24 23:02 94 L 02/04/24 23:01 71 21 146/109 94 L 02/04/24 22:30 67 20 125/73 92 L 02/04/24 22:00 75 22 125/74 92 L 02/04/24 21:31 74 24 132/77 92 L 02/04/24 20:46 89 25 H 174/94 93 L 02/04/24 20:00 80 17 170/103 94 L 02/04/24 19:33 93 L 02/04/24 19:31 69 25 H 214/118 94 L 02/04/24 18:46 98.7 F 77 22 182/83 93 L General Appearance: moderate distress Neurologic Exam: alert Ears, Nose, Throat Exam: moist mucous membranes Neck Exam: supple Respiratory Exam: No respiratory distress Cardiovascular Exam: regular rate/rhythm Gastrointestinal/Abdomen Exam: soft Extremity Exam: No pedal edema, No swelling Skin Exam: normal color, No rash Results - Labs Lab/Micro Results: Lab Results-Last 24 Hours 02/04/24 02/04/24 02/04/24 Range/Units 19:10 19:10 19:10 WBC 8.6 (4.0-10.5) x10^3/uL RBC 4.27 (4.1-5.4) x10^6/uL Hgb 12.8 (12.0-16.0) g/dL Hct 38.9 (35-47) % MCV 91.1 (78-100) fL MCH 30.0 (26-32) pg MCHC 32.9 (32-36) g/dL RDW 14.0 (11.5-14.0) % Plt Count 207 (150-450) x10^3/uL MPV 11.1 H (7.5-11.0) fL Gran % 65.9 (36.0-66.0) % Immature Gran % (Auto) 0.3 (0.00-0.4) % Nucleat RBC Rel Count 0.0 (0.00-0.1) % Eos # (Auto) 0.36 (0-0.5) x10^3/uL Immature Gran # (Auto) 0.03 (0.00-0.03) x10^3u/L Absolute Lymphs (auto) 1.72 (1.0-4.6) x10^3/uL Absolute Monos (auto) 0.77 (0.0-1.3) x10^3/uL Absolute Nucleated RBC 0.00 (0.00-0.01) x10^3u/L Lymphocytes % 19.9 L (24.0-44.0) % Monocytes % 8.9 (0.0-12.0) % Eosinophils % 4.2 (0.00-5.0) % Basophils % 0.8 (0.0-0.4) % Absolute Granulocytes 5.68 (1.4-6.9) x10^3/uL Basophils # 0.07 (0-0.4) x10^3/uL Sodium 141 (135-145) mmol/L Potassium 3.5 (3.5-5.1) mmol/L Chloride 104 (98-107) mmol/L Carbon Dioxide 28 (22-30) mmol/L Anion Gap 12.7 (5-15) MEQ/L BUN 18 H (7-17) mg/dL Creatinine 1.07 H (0.52-1.04) mg/dL Estimated GFR 52.8 ML/MIN Glucose 95 (74-106) mg/dL Calcium 9.8 (8.4-10.2) mg/dL Total Bilirubin 1.30 (0.2-1.3) mg/dL AST 20 (14-36) U/L ALT 17 (0-35) U/L Alkaline Phosphatase 89 (38-126) U/L Troponin I 0.016 (0.000-0.033) ng/mL Serum Total Protein 8.1 (6.3-8.2) g/dL Albumin 4.2 (3.5-5.0) g/dL Urine Color (Yellow) Urine Appearance (Clear) Urine pH (4.6-8.0) Ur Specific [place] (1.005-1.030) Urine Protein (Negative) Urine Glucose (UA) (Negative) mg/dL Urine Ketones (Negative) Urine Blood (Negative) Urine Nitrite (Negative) Urine Bilirubin (Negative) Urine Urobilinogen (0.2) mg/dL Ur Leukocyte Esterase (Negative) U Hyaline Cast (Auto) (0-2) /LPF Urine Microscopic RBC (0-5) /HPF Urine Microscopic WBC (0-5) /HPF Ur Epithelial Cells (None Seen) /HPF Urine Bacteria (None Seen) /HPF Urine Culture Reflexed (NO) 02/04/24 02/04/24 Range/Units 20:30 22:15 WBC (4.0-10.5) x10^3/uL RBC (4.1-5.4) x10^6/uL Hgb (12.0-16.0) g/dL Hct (35-47) % MCV (78-100) fL MCH (26-32) pg MCHC (32-36) g/dL RDW (11.5-14.0) % Plt Count (150-450) x10^3/uL MPV (7.5-11.0) fL Gran % (36.0-66.0) % Immature Gran % (Auto) (0.00-0.4) % Nucleat RBC Rel Count (0.00-0.1) % Eos # (Auto) (0-0.5) x10^3/uL Immature Gran # (Auto) (0.00-0.03) x10^3u/L Absolute Lymphs (auto) (1.0-4.6) x10^3/uL Absolute Monos (auto) (0.0-1.3) x10^3/uL Absolute Nucleated RBC (0.00-0.01) x10^3u/L Lymphocytes % (24.0-44.0) % Monocytes % (0.0-12.0) % Eosinophils % (0.00-5.0) % Basophils % (0.0-0.4) % Absolute Granulocytes (1.4-6.9) x10^3/uL Basophils # (0-0.4) x10^3/uL Sodium (135-145) mmol/L Potassium (3.5-5.1) mmol/L Chloride (98-107) mmol/L Carbon Dioxide (22-30) mmol/L Anion Gap (5-15) MEQ/L BUN (7-17) mg/dL Creatinine (0.52-1.04) mg/dL Estimated GFR ML/MIN Glucose (74-106) mg/dL Calcium (8.4-10.2) mg/dL Total Bilirubin (0.2-1.3) mg/dL AST (14-36) U/L ALT (0-35) U/L Alkaline Phosphatase (38-126) U/L Troponin I 0.018 (0.000-0.033) ng/mL Serum Total Protein (6.3-8.2) g/dL Albumin (3.5-5.0) g/dL Urine Color Yellow (Yellow) Urine Appearance Clear (Clear) Urine pH 7.0 (4.6-8.0) Ur Specific [place] 1.010 (1.005-1.030) Urine Protein Negative (Negative) Urine Glucose (UA) Negative (Negative) mg/dL Urine Ketones Trace A (Negative) Urine Blood Negative (Negative) Urine Nitrite Negative (Negative) Urine Bilirubin Negative (Negative) Urine Urobilinogen 0.2 (0.2) mg/dL Ur Leukocyte Esterase Negative (Negative) U Hyaline Cast (Auto) NONE SEEN (0-2) /LPF Urine Microscopic RBC 0-2 (0-5) /HPF Urine Microscopic WBC 0-2 (0-5) /HPF Ur Epithelial Cells None Seen (None Seen) /HPF Urine Bacteria None Seen (None Seen) /HPF Urine Culture Reflexed NO (NO) - Radiology Impressions Radiology Exams & Impressions: Radiology Procedures Category Date Time Status CHEST WITH CONTRAST [CT] Stat Exams 02/04/24 18:57 Taken Assessment/Plan (1) Chest pain Current Visit: Yes Status: Acute Assessment & Plan: Unclear etiology, possibly related to lung disease, but need to rule out IN 1. Admit to hospital 2. Telemetry 3. Trend cardiac enzymes 4. ASA/beta rosanna 5. Likely needs cardiac work up Code(s): R07.9 - CHEST PAIN, UNSPECIFIED (2) Pulmonary hypertension Current Visit: Yes Status: Acute Assessment & Plan: Possibly seen on CTA chest 1. Attempt diuresis 2. Pulmonary eval 3. Duonebs 4. May benefit from sildenafil Code(s): I27.20 - PULMONARY HYPERTENSION, UNSPECIFIED (3) Acute kidney injury Current Visit: Yes Status: Acute Assessment & Plan: Creatinine 1.1 likely from cardiorenal syndrome and hypertensive nephrosclerosis 1. Encourage PO intake 2. Continue diuretics 3. Follow I/Os 4. Watch electrolytes, creatinine closely Code(s): N17.9 - ACUTE KIDNEY FAILURE, UNSPECIFIED (4) Hypertensive chronic kidney disease with stage 1 through stage 4 chronic kidney disease, or unspecified chronic kidney disease Current Visit: Yes Status: Acute Assessment & Plan: Blood pressure under reasonable control 1. Continue bp meds 2. Low Na diet 3. Monitor blood pressure readings Code(s): I12.9 - HYPERTENSIVE CHRONIC KIDNEY DISEASE W STG 1-4/UNSP [facility] Telemedicine Encounter - Telemedicine Encounter Telemedicine Encounter: The entirety of this encounter was performed via Telemedicine"
[2024-02-05 02:28] LABS: Absolute Neutrophil Ct (ANC) 4.52 x10^3/uL (1.4-6.9); BASOPHIL % 0.7 % (0.0-0.4); Basophil (Absolute #) 0.05 x10^3/uL (0-0.4); Eosinophil % 4.3 % (0.00-5.0); Eosinophil (Absolute #) 0.32 x10^3/uL (0-0.5); Hemoglobin 11.8 g/dL (12.0-16.0); IMMATURE GRAN # 0.02 x10^3u/L (0.00-0.03); IMMATURE GRAN % 0.3 % (0.00-0.4); Lymphocyte (Absolute #) 1.79 x10^3/uL (1.0-4.6); Lymphocytes % 23.8 % (24.0-44.0); Mean Cell Volume 90.5 fL (78-100); Mean Corpuscular Hemoglobin 29.6 pg (26-32); Mean Corpuscular Hgb Concent. 32.8 g/dL (32-36); Mean Platelet Volume 11.5 fL (7.5-11.0); Monocyte (Absolute #) 0.82 x10^3/uL (0.0-1.3); Monocytes % 10.9 % (0.0-12.0); Platelet Count 188 x10^3/uL (150-450); Red Blood Count 3.98 x10^6/uL (4.1-5.4); Red Cell Distribution Width 14.1 % (11.5-14.0); White Blood Count 7.5 x10^3/uL (4.0-10.5)
[2024-02-05 02:41] LABS: ALBUMIN 3.5 g/dL (3.5-5.0); ANION GAP 9.8 MEQ/L (5-15); BILIRUBIN,TOTAL 1.3 mg/dL (0.2-1.3); Calcium 9.2 mg/dL (8.4-10.2); Creatinine 1 0.94 mg/dL (0.52-1.04); EST GLOMERULAR FILTRATION RATE 61.7 ML/MIN; Potassium 3.6 mmol/L (3.5-5.1); Total Protein 6.7 g/dL (6.3-8.2)
[2024-02-05] MEDS: Lasix 40 MG/4 ML IV SCH ×2 (03:25→10:44)
[2024-02-05] MEDS ORDERED: DUONEB 0.5-3 MG/3 ml Neb IH SCH (07:00)
[2024-02-05] MEDS ORDERED: BRIMONIDINE TARTRATE DROPS SCH (07:45)
[2024-02-05] MEDS ORDERED: COSOPT OPHTHALMIC 10 ML OP SCH (07:45)
[2024-02-05] MEDS ORDERED: NETARSUDIL MESYLATE DROPS SCH (07:45)
[2024-02-05] MEDS ORDERED: VENTOLIN COMMON CANISTER IH PRN (07:53)
[2024-02-05] MEDS ORDERED: MEDICATION INTERVENTION MC SCH ×4 (08:00→08:15)
--- NOTE | 2024-02-05 08:55 | XRAY ---
Indication: Pain. Pulmonary embolus. Multiple contiguous axial images obtained through the chest using 100 cc Isovue 370 contrast and PE protocol. Comparison: None Good opacification pulmonary arteries including lobar and segmental branches. No pulmonary embolus. Prominent left and right main pulmonary arteries up to 3.3 cm suggests pulmonary hypertension. Heart also enlarged with scattered coronary calcifications and previous CABG. Aorta mildly arteriosclerotic without aneurysm/dissection. No pathologic mediastinal/hilar lymphadenopathy. Small hiatal hernia. Lungs demonstrates mild diffuse pulmonary emphysema with scattered bilateral peripheral fibrosis/scarring. Minimal dependent atelectasis posterior right lung. No suspicious pulmonary mass/nodule, infiltrate, effusion, or pneumothorax. Bony thorax intact with osteopenia, mild/moderate degenerative changes throughout spine, and superior T3 Schmorl node versus remote fracture. Limited upper abdomen including adrenal glands are unremarkable. Impression: 1. Negative pulmonary embolus. No acute cardiopulmonary abnormalities. 2. Cardiomegaly with prominent pulmonary arteries favoring pulmonary hypertension. 3. Chronic findings including pulmonary emphysema, pulmonary fibrosis/scarring, arteriosclerotic disease, hiatal hernia, and chronic bony findings.
[2024-02-05] MEDS ORDERED: Spiriva 18 Mcg/Cap Inhaler IH SCH (10:00)
[2024-02-05] MEDS ORDERED: Imdur 30 MG PO SCH (10:00)
[2024-02-05] MEDS ORDERED: Lopressor 25MG Tab PO SCH (10:00)
[2024-02-05] MEDS ORDERED: NON-FORMULARY ITEM (Apixaban [Eliquis] 5 MG Tablet) PO SCH (10:00)
[2024-02-05] MEDS ORDERED: ENOXAPARIN SODIUM SQ SCH (10:00)
--- NOTE | 2024-02-05 10:34 | PCM.NOTE ---
Date and Time: 02/05/24 1023 Subjective Assessment: 02/05/24 Ms. MARTINEZ is a 78 year old female with a past medical history significant for hypertension, hyperlipidemia, pulmonary emphysema, aortic stenosis, CHF, asthma, OA, RA, CABG x3, psoriatic arthritis, and cardiac cath. On Eliquis. She reported in ER that she had some lung swelling while in [place] but then moved here. She presents with complaints of persistent chest pain rated 8/10 in severity accompanied by shortness of breath with exertion. She underwent CTA chest and there is concern about possible new pulmonary hypertension. She was started on lasix 40 BID. She is on 2lNC at 95%. Per nursing she had some right lobe crackles that have improved since admission with lasix. Echo ordered for today. Trop x3 negative. Pt follows Dr. Khalil and will call to discuss results with him and further plan of care today. She does follow Dr. Weaver for chronic pulm emphysema. TOM has resolved. BP improved. She denies CP, SOB, abd pain, N/V/D. - Review of Systems Constitutional: No Fever, No Chills Eyes: No Symptoms Ears, Nose, & Throat: No Symptoms Respiratory: No Cough, No Short Of Breath Cardiac: No Chest Pain, No Edema, No Syncope Abdominal/Gastrointestinal: No Abdominal Pain, No Nausea, No Vomiting, No Diarrhea Genitourinary Symptoms: No Dysuria Musculoskeletal: No Back Pain, No Neck Pain Skin: No Rash Neurological: No Dizziness, No Focal Weakness, No Sensory Changes Psychological: No Symptoms Endocrine: No Symptoms Hematologic/Lymphatic: No Symptoms Immunological/Allergic: No Symptoms Objective Exam General Appearance: no apparent distress, alert, obese Neurologic Exam: alert, oriented x 3, cooperative, normal mood/affect, nml cerebellar function, sensation nml, No motor deficits Skin Exam: normal color, warm, dry Eye Exam: PERRL, EOMI, eyes nml inspection Ears, Nose, Throat Exam: normal ENT inspection, pharynx normal, moist mucous membranes Neck Exam: normal inspection, non-tender, supple, full range of motion Respiratory Exam: lungs clear, diminished breath sounds (Left lobe), No respiratory distress Cardiovascular Exam: regular rate/rhythm, normal heart sounds Gastrointestinal/Abdomen Exam: soft, No tenderness, No mass Extremity Exam: normal inspection, normal range of motion Back Exam: normal inspection, normal range of motion, No CVA tenderness, No vertebral tenderness Pelvic Exam: deferred Rectal Exam: deferred Objective Data Vital Signs: Vital Signs - 24 hr Temp Pulse Resp BP BP Pulse Ox 02/05/24 08:59 91 H 18 95 02/05/24 08:02 95 02/05/24 02:15 91 L 02/05/24 02:14 72 20 91 L 02/05/24 02:00 99 02/05/24 01:41 97.1 F 66 20 165/83 99 02/05/24 01:00 65 18 141/83 94 L 02/05/24 00:49 71 16 135/68 93 L 02/05/24 00:31 75 18 118/70 94 L 02/05/24 00:00 49 L 17 139/73 99 02/04/24 23:30 68 19 150/78 97 02/04/24 23:02 94 L 02/04/24 23:01 71 21 146/109 94 L 02/04/24 22:30 67 20 125/73 92 L 02/04/24 22:00 75 22 125/74 92 L 02/04/24 21:31 74 24 132/77 92 L 02/04/24 20:46 89 25 H 174/94 93 L 02/04/24 20:00 80 17 170/103 94 L 02/04/24 19:33 93 L 02/04/24 19:31 69 25 H 214/118 94 L 02/04/24 18:46 98.7 F 77 22 182/83 93 L Pain Assessment - Last Documented Pain Intensity 3 Pain Scale Used 0-10 Pain Scale Intake and Output: Intake & Output 02/02/24 02/03/24 02/04/24 02/05/24 11:59 11:59 11:59 11:59 Intake Total 120 Balance 120 Weight 97.4 kg Lab Results: Lab Results-Last 24 Hours 02/04/24 02/04/24 02/04/24 Range/Units 19:10 19:10 19:10 WBC 8.6 (4.0-10.5) x10^3/uL RBC 4.27 (4.1-5.4) x10^6/uL Hgb 12.8 (12.0-16.0) g/dL Hct 38.9 (35-47) % MCV 91.1 (78-100) fL MCH 30.0 (26-32) pg MCHC 32.9 (32-36) g/dL RDW 14.0 (11.5-14.0) % Plt Count 207 (150-450) x10^3/uL MPV 11.1 H (7.5-11.0) fL Gran % 65.9 (36.0-66.0) % Immature Gran % (Auto) 0.3 (0.00-0.4) % Nucleat RBC Rel Count 0.0 (0.00-0.1) % Eos # (Auto) 0.36 (0-0.5) x10^3/uL Immature Gran # (Auto) 0.03 (0.00-0.03) x10^3u/L Absolute Lymphs (auto) 1.72 (1.0-4.6) x10^3/uL Absolute Monos (auto) 0.77 (0.0-1.3) x10^3/uL Absolute Nucleated RBC 0.00 (0.00-0.01) x10^3u/L Lymphocytes % 19.9 L (24.0-44.0) % Monocytes % 8.9 (0.0-12.0) % Eosinophils % 4.2 (0.00-5.0) % Basophils % 0.8 (0.0-0.4) % Absolute Granulocytes 5.68 (1.4-6.9) x10^3/uL Basophils # 0.07 (0-0.4) x10^3/uL Sodium 141 (135-145) mmol/L Potassium 3.5 (3.5-5.1) mmol/L Chloride 104 (98-107) mmol/L Carbon Dioxide 28 (22-30) mmol/L Anion Gap 12.7 (5-15) MEQ/L BUN 18 H (7-17) mg/dL Creatinine 1.07 H (0.52-1.04) mg/dL Estimated GFR 52.8 ML/MIN Glucose 95 (74-106) mg/dL Calcium 9.8 (8.4-10.2) mg/dL Total Bilirubin 1.30 (0.2-1.3) mg/dL AST 20 (14-36) U/L ALT 17 (0-35) U/L Alkaline Phosphatase 89 (38-126) U/L Troponin I 0.016 (0.000-0.033) ng/mL Serum Total Protein 8.1 (6.3-8.2) g/dL Albumin 4.2 (3.5-5.0) g/dL Urine Color (Yellow) Urine Appearance (Clear) Urine pH (4.6-8.0) Ur Specific [place] (1.005-1.030) Urine Protein (Negative) Urine Glucose (UA) (Negative) mg/dL Urine Ketones (Negative) Urine Blood (Negative) Urine Nitrite (Negative) Urine Bilirubin (Negative) Urine Urobilinogen (0.2) mg/dL Ur Leukocyte Esterase (Negative) U Hyaline Cast (Auto) (0-2) /LPF Urine Microscopic RBC (0-5) /HPF Urine Microscopic WBC (0-5) /HPF Ur Epithelial Cells (None Seen) /HPF Urine Bacteria (None Seen) /HPF Urine Culture Reflexed (NO) 02/04/24 02/04/24 02/05/24 Range/Units 20:30 22:15 02:10 WBC (4.0-10.5) x10^3/uL RBC (4.1-5.4) x10^6/uL Hgb (12.0-16.0) g/dL Hct (35-47) % MCV (78-100) fL MCH (26-32) pg MCHC (32-36) g/dL RDW (11.5-14.0) % Plt Count (150-450) x10^3/uL MPV (7.5-11.0) fL Gran % (36.0-66.0) % Immature Gran % (Auto) (0.00-0.4) % Nucleat RBC Rel Count (0.00-0.1) % Eos # (Auto) (0-0.5) x10^3/uL Immature Gran # (Auto) (0.00-0.03) x10^3u/L Absolute Lymphs (auto) (1.0-4.6) x10^3/uL Absolute Monos (auto) (0.0-1.3) x10^3/uL Absolute Nucleated RBC (0.00-0.01) x10^3u/L Lymphocytes % (24.0-44.0) % Monocytes % (0.0-12.0) % Eosinophils % (0.00-5.0) % Basophils % (0.0-0.4) % Absolute Granulocytes (1.4-6.9) x10^3/uL Basophils # (0-0.4) x10^3/uL Sodium (135-145) mmol/L Potassium (3.5-5.1) mmol/L Chloride (98-107) mmol/L Carbon Dioxide (22-30) mmol/L Anion Gap (5-15) MEQ/L BUN (7-17) mg/dL Creatinine (0.52-1.04) mg/dL Estimated GFR ML/MIN Glucose (74-106) mg/dL Calcium (8.4-10.2) mg/dL Total Bilirubin (0.2-1.3) mg/dL AST (14-36) U/L ALT (0-35) U/L Alkaline Phosphatase (38-126) U/L Troponin I 0.018 0.027 (0.000-0.033) ng/mL Serum Total Protein (6.3-8.2) g/dL Albumin (3.5-5.0) g/dL Urine Color Yellow (Yellow) Urine Appearance Clear (Clear) Urine pH 7.0 (4.6-8.0) Ur Specific [place] 1.010 (1.005-1.030) Urine Protein Negative (Negative) Urine Glucose (UA) Negative (Negative) mg/dL Urine Ketones Trace A (Negative) Urine Blood Negative (Negative) Urine Nitrite Negative (Negative) Urine Bilirubin Negative (Negative) Urine Urobilinogen 0.2 (0.2) mg/dL Ur Leukocyte Esterase Negative (Negative) U Hyaline Cast (Auto) NONE SEEN (0-2) /LPF Urine Microscopic RBC 0-2 (0-5) /HPF Urine Microscopic WBC 0-2 (0-5) /HPF Ur Epithelial Cells None Seen (None Seen) /HPF Urine Bacteria None Seen (None Seen) /HPF Urine Culture Reflexed NO (NO) 02/05/24 02/05/24 Range/Units 02:10 02:10 WBC 7.5 (4.0-10.5) x10^3/uL RBC 3.98 L (4.1-5.4) x10^6/uL Hgb 11.8 L (12.0-16.0) g/dL Hct 36.0 (35-47) % MCV 90.5 (78-100) fL MCH 29.6 (26-32) pg MCHC 32.8 (32-36) g/dL RDW 14.1 H (11.5-14.0) % Plt Count 188 (150-450) x10^3/uL MPV 11.5 H (7.5-11.0) fL Gran % 60.0 (36.0-66.0) % Immature Gran % (Auto) 0.3 (0.00-0.4) % Nucleat RBC Rel Count 0.0 (0.00-0.1) % Eos # (Auto) 0.32 (0-0.5) x10^3/uL Immature Gran # (Auto) 0.02 (0.00-0.03) x10^3u/L Absolute Lymphs (auto) 1.79 (1.0-4.6) x10^3/uL Absolute Monos (auto) 0.82 (0.0-1.3) x10^3/uL Absolute Nucleated RBC 0.00 (0.00-0.01) x10^3u/L Lymphocytes % 23.8 L (24.0-44.0) % Monocytes % 10.9 (0.0-12.0) % Eosinophils % 4.3 (0.00-5.0) % Basophils % 0.7 (0.0-0.4) % Absolute Granulocytes 4.52 (1.4-6.9) x10^3/uL Basophils # 0.05 (0-0.4) x10^3/uL Sodium 139 (135-145) mmol/L Potassium 3.6 (3.5-5.1) mmol/L Chloride 105 (98-107) mmol/L Carbon Dioxide 28 (22-30) mmol/L Anion Gap 9.8 (5-15) MEQ/L BUN 17 (7-17) mg/dL Creatinine 0.94 (0.52-1.04) mg/dL Estimated GFR 61.7 ML/MIN Glucose 95 (74-106) mg/dL Calcium 9.2 (8.4-10.2) mg/dL Total Bilirubin 1.30 (0.2-1.3) mg/dL AST 18 (14-36) U/L ALT 15 (0-35) U/L Alkaline Phosphatase 85 (38-126) U/L Troponin I (0.000-0.033) ng/mL Serum Total Protein 6.7 (6.3-8.2) g/dL Albumin 3.5 (3.5-5.0) g/dL Urine Color (Yellow) Urine Appearance (Clear) Urine pH (4.6-8.0) Ur Specific [place] (1.005-1.030) Urine Protein (Negative) Urine Glucose (UA) (Negative) mg/dL Urine Ketones (Negative) Urine Blood (Negative) Urine Nitrite (Negative) Urine Bilirubin (Negative) Urine Urobilinogen (0.2) mg/dL Ur Leukocyte Esterase (Negative) U Hyaline Cast (Auto) (0-2) /LPF Urine Microscopic RBC (0-5) /HPF Urine Microscopic WBC (0-5) /HPF Ur Epithelial Cells (None Seen) /HPF Urine Bacteria (None Seen) /HPF Urine Culture Reflexed (NO) Radiology Exams: Radiology Procedures Category Date Time Status CHEST WITH CONTRAST [CT] Stat Exams 02/04/24 18:57 Completed ECHO W/2D AND DOPPLER [US] Routine Exams 02/05/24 07:38 Ordered Assessment/Plan (1) Chest pain Current Visit: Yes Status: Acute Assessment & Plan: - Trop x3 negative - Follows Dr. Samuels cardiology - echo - resolved - ASA - lipid panel reviewed from old records- 02/26/23 were good Code(s): R07.9 - CHEST PAIN, UNSPECIFIED (2) Pulmonary hypertension Current Visit: Yes Status: Acute Assessment & Plan: - as seen o CT - echo - lasix 40 BID - tele - Continue home BP meds Code(s): I27.20 - PULMONARY HYPERTENSION, UNSPECIFIED (3) Pulmonary emphysema with fibrosis of lung Current Visit: Yes Status: Chronic Assessment & Plan: - follows Dr. Lovett Pulm - currently on 2LNC with O2 at 95% - PRN breathing treatments Code(s): J43.9 - EMPHYSEMA, UNSPECIFIED; J84.10 - PULMONARY FIBROSIS, UNSPECIFIED (4) Acute kidney injury Current Visit: Yes Status: Resolved Assessment & Plan: - resolved VTE: Eliquis PPI: Protonix Next of Kin: Mazin Martinez, spouse [phone] D/C plan: 1-2 days Code status: Full Code(s): N17.9 - ACUTE KIDNEY FAILURE, UNSPECIFIED (5) [facility]CC (current) use of anticoagulants Current Visit: Yes Status: Acute Assessment & Plan: - Continue Eliquis 5mg BID - HX CABG x3 and stents Code(s): Z79.01 - TECHNICIAN PREVENTATIVE MEDICINE (CURRENT) USE OF ANTICOAGULANTS
[2024-02-05] MEDS: TYLENOL 325 MG PO PRN ×2 (10:44→18:55)
[2024-02-05] MEDS: ELIQUIS 2.5 MG TABLET PO SCH (10:44)
[2024-02-05] MEDS: Protonix 40MG Tablet PO SCH (10:44)
[2024-02-05] MEDS: Toprol-Xl 25MG Tablets PO SCH (10:44)
[2024-02-05] MEDS: Zetia 10 MG PO SCH (10:44)
[2024-02-05] MEDS: Imdur 60MG PO SCH (10:44)
[2024-02-05] MEDS: PATIENT OWN MEDICATION PO SCH ×2 (10:45→11:02)
[2024-02-05] MEDS: PATIENT OWN MEDICATION OP SCH ×3 (14:44→21:45)
--- NOTE | 2024-02-05 15:27 | ECHO ---
Transthoracic echocardiographic examination and color Doppler was done on 02/05/2024. INDICATION: Shortness of breath, chest pain. IMPRESSION: 1) NO REGIONAL WALL MOTION ABNORMALITY. ESTIMATED GLOBAL LEFT VENTRICULAR EJECTION FRACTION OF AROUND 60 TO 65%. 2) MILD MITRAL REGURGITATION. 3) MILD TO MODERATE AORTIC STENOSIS WITH PEAK TRANSAORTIC GRADIENT OF 35 MM OF MERCURY WITH A MEAN GRAIDENT OF 15 MM OF MERCURY AND VR RATIO OF 0.44. 4) MODERATE AORTIC REGURGITATION. 5) MILD TRICUSPID REGURGITATION. RIGHT VENTRICULAR SYSTOLIC PRESSURE OF 34 MM OF MERCURY. 6) LEFT ATRIAL ENLARGEMENT. 7) LEFT VENTRICULAR HYPERTROPHY. 8) PROMINENT EPICARDIAL FAT. The left ventricle is visualized and demonstrated adequate motion of all the segments. Estimated global left ventricular ejection fraction of around 60 to 65%. There is concentric left ventricular hypertrophy. The mitral valve is seen and this opens adequately. There is mild mitral regurgitation. Left atrium is enlarged. The aortic valve is sclerotic. The peak gradient across the aortic valve is 35 mm of Mercury with a mean gradient of 15 mm of Mercury and a VR ratio of 0.44 suggestive of mild to moderate aortic stenosis with moderate aortic regurgitation. The right side chambers are normal. There is mild tricuspid regurgitation. The right ventricular systolic pressure of 34 mm of Mercury. There is prominent epicardial fat.
[2024-02-05] MEDS: CLARITIN 10 MG PO SCH (21:43)
[2024-02-05] MEDS ORDERED: APREMILAST 30 MG PO SCH (22:00)
[2024-02-06 05:04] LABS: Hematocrit 37.2 % (35-47); Hemoglobin 12.1 g/dL (12.0-16.0); Mean Cell Volume 91.4 fL (78-100); Mean Corpuscular Hemoglobin 29.7 pg (26-32); Mean Corpuscular Hgb Concent. 32.5 g/dL (32-36); Mean Platelet Volume 11.3 fL (7.5-11.0); Platelet Count 195 x10^3/uL (150-450); Red Blood Count 4.07 x10^6/uL (4.1-5.4); Red Cell Distribution Width 14.3 % (11.5-14.0); White Blood Count 7.1 x10^3/uL (4.0-10.5)
[2024-02-06 05:26] LABS: ALBUMIN 3.8 g/dL (3.5-5.0); ANION GAP 8.8 MEQ/L (5-15); BILIRUBIN,TOTAL 0.9 mg/dL (0.2-1.3); Calcium 9.1 mg/dL (8.4-10.2); Creatinine 1 1.11 mg/dL (0.52-1.04); EST GLOMERULAR FILTRATION RATE 50.6 ML/MIN; Potassium 3.4 mmol/L (3.5-5.1); Total Protein 7.6 g/dL (6.3-8.2)
[2024-02-06] MEDS: PATIENT OWN MEDICATION IH SCH ×2 (07:30→07:36)
[2024-02-06] MEDS: PROVENTIL 2.5 MG/3 ML NEB IH PRN (07:30)
[2024-02-06 07:33] VITALS: BP 154/81
[2024-02-06] MEDS: Klor Con PO SCH (09:21)
[2024-02-06] MEDS: Lasix 40 MG PO SCH (09:22)
--- NOTE | 2024-02-06 10:29 | PCM.DS ---
Discharge Summary Date of Admission: 02/05/24 01:27 Date of Discharge: 02/06/24 Admitting Physician: JONNA DÍAZ MD Primary Care Provider: ALEXIA MICHELE Allergies Allergies carvedilol Allergy (Verified 02/04/24 19:00) nystatin Allergy (Verified 02/04/24 18:57) HIVES simvastatin [From Zocor] Allergy (Verified 02/04/24 19:00) [id number] Reductase Inhibitor [Wfkfkdh-Hhr-Gee Reductase Inhibitor] Allerg y (Verified 02/04/24 18:57) Hospital Summary - Hospital Course Hospital Course: 02/05/24 Ms. HOLBROOK is a 78 year old female with a past medical history significant for hypertension, hyperlipidemia, pulmonary emphysema, aortic stenosis, CHF, asthma, OA, RA, CABG x3, psoriatic arthritis, and cardiac cath. On . She reported in ER that she had some lung swelling while in [place] but then moved here. She presents with complaints of persistent chest pain rated 8/10 in severity accompanied by shortness of breath with exertion. She underwent CTA chest and there is concern about possible new pulmonary hypertension. She was started on lasix 40 BID. She is on 2lNC at 95%. Per nursing she had some right lobe crackles that have improved since admission with lasix. Echo ordered for today. Trop x3 negative. Pt follows Dr. Khalil and will call to discuss results with him and further plan of care today. She does follow Dr. Gregorio for chronic pulm emphysema. TOM has resolved. BP improved. She denies CP, SOB, abd pain, N/V/D. 02/06/24 Pt sitting up in bed. She is c/o left scapular pain. Tylenol worked well for pain yesterday and asked RN to provide medication today for pain. Discussed labs and radiology results in detail. Spoke with Dr. Khalil, pt's gear technician yesterday. He explained that pt had been in his office the day she was admitted. Pt had not told us that. Discussed Echo and CT findings with him. He did not wa nt to change any meds at this time and recommended she f/u Op with Dr. Gregorio, pt's railway patrol officer. She does appear to have some slight TOM and this is most likely from IV Lasix. Lasix changed back to PO home dosing. BNP 193 today. She is not requiring oxygen today. She is RA 96%. [facility] is requesting pt have O2 at home as needed for pulm fibrosis. RT to eval for need. She is a good canidate for pul/ cardiac rehab. Will send over referral. She denies CP, SOB, abd pain, N/V/D. - Vitals & Intake/Output Vital Signs: Vital Signs Temperature 97.4 F 02/06/24 07:32 Pulse Rate 61 02/06/24 07:32 Respiratory Rate 16 02/06/24 07:32 Blood Pressure 154/81 02/06/24 07:32 O2 Sat by Pulse Oximetry 96 02/06/24 07:32 Intake & Output: Intake & Output 02/03/24 02/04/24 02/05/24 02/06/24 11:59 11:59 11:59 11:59 Intake Total 120 1280 Balance 120 1280 Weight 97.4 kg - Lab Result Diagrams: 02/06/24 04:45 02/06/24 04:45 Lab Results-Last 24 Hrs: Lab Results-Last 24 Hours 02/06/24 02/06/24 Range/Units 04:45 04:45 WBC 7.1 (4.0-10.5) x10^3/uL RBC 4.07 L (4.1-5.4) x10^6/uL Hgb 12.1 (12.0-16.0) g/dL Hct 37.2 (35-47) % MCV 91.4 (78-100) fL MCH 29.7 (26-32) pg MCHC 32.5 (32-36) g/dL RDW 14.3 H (11.5-14.0) % Plt Count 195 (150-450) x10^3/uL MPV 11.3 H (7.5-11.0) fL Sodium 137 (135-145) mmol/L Potassium 3.4 L (3.5-5.1) mmol/L Chloride 100 (98-107) mmol/L Carbon Dioxide 32 H (22-30) mmol/L Anion Gap 8.8 (5-15) MEQ/L BUN 20 H (7-17) mg/dL Creatinine 1.11 H (0.52-1.04) mg/dL Estimated GFR 50.6 ML/MIN Glucose 96 (74-106) mg/dL Calcium 9.1 (8.4-10.2) mg/dL Total Bilirubin 0.90 (0.2-1.3) mg/dL AST 20 (14-36) U/L ALT 14 (0-35) U/L Alkaline Phosphatase 82 (38-126) U/L NT-Pro-B Natriuret Pep 193 (<300) pg/mL Serum Total Protein 7.6 (6.3-8.2) g/dL Albumin 3.8 (3.5-5.0) g/dL - Radiology Exams Ordered Rad Exams-Entire Visit: Radiology Procedures Category Date Time Status CHEST WITH CONTRAST [CT] Stat Exams 02/04/24 18:57 Completed ECHO W/2D AND DOPPLER [US] Routine Exams 02/05/24 07:38 Draft - Procedures and Test Procedures and Tests throughout Hospitalization: Therapy Orders & Screens 02/05/24 01:45 Respiratory Therapy Consult ONCE Comment: Reason For Exam: Diagnosis: ACS, 02/05/24 02:14 Respiratory Therapy Assessment DAILY Comment: Diagnosis: ACS, 02/05/24 07:36 Oxygen Nasal Cannula 2 lpm Comment: Keep O2 > 92% Diagnosis: ACS, 02/06/24 07:45 Respiratory MDI Q12H Comment: Advair 115/21 2 puffs BID Diagnosis: ACS, 02/06/24 10:10 Qualify for Home Oxygen TODAY Comment: Diagnosis: ACS, Discharge Exam General Appearance: no apparent distress, alert, obese Neurologic Exam: alert, oriented x 3, cooperative, normal mood/affect, nml cerebellar function, sensation nml, No motor deficits Eye Exam: PERRL, EOMI, eyes nml inspection Ears, Nose, Throat Exam: normal ENT inspection, pharynx normal, moist mucous membranes Neck Exam: normal inspection, non-tender, supple, full range of motion Respiratory Exam: normal breath sounds, lungs clear, No respiratory distress Cardiovascular Exam: regular rate/rhythm, normal heart sounds, murmur (aortic) Gastrointestinal/Abdomen Exam: soft, No tenderness, No mass Pelvic Exam: deferred Rectal Exam: deferred Back Exam: normal inspection, normal range of motion, No CVA tenderness, No vertebral tenderness Extremity Exam: normal inspection, normal range of motion Skin Exam: normal color, warm, dry Final Diagnosis/Problem List - Final Discharge Diagnosis/Problem (1) Chest pain Current Visit: Yes Status: Acute Code(s): R07.9 - CHEST PAIN, UNSPECIFIED (2) Pulmonary hypertension Current Visit: Yes Status: Acute Code(s): I27.20 - PULMONARY HYPERTENSION, UNSPECIFIED (3) Pulmonary emphysema with fibrosis of lung Current Visit: Yes Status: Chronic Code(s): J43.9 - EMPHYSEMA, UNSPECIFIED; J84.10 - PULMONARY FIBROSIS, UNSPECIFIED (4) Acute kidney injury Current Visit: Yes Status: Resolved Code(s): N17.9 - ACUTE KIDNEY FAILURE, UNSPECIFIED (5) correction (current) use of anticoagulants Current Visit: Yes Status: Acute Assessment & Plan: (1) Chest pain Current Visit: Yes Status: Acute Assessment & Plan: - Trop x3 negative - Follows Dr. Samuels cardiology - echo- reviewed with Dr. Samuels EF 60-65% IMPRESSION: 1) NO REGIONAL WALL MOTION ABNORMALITY. ESTIMATED GLOBAL LEFT VENTRICULAR EJECTION FRACTION OF AROUND 60 TO 65% 2) MILD MITRAL REGURGITATION. 3) MILD TO MODERATE AORTIC STENOSIS WITH PEAK TRANSAORTIC GRADIENT OF 35 MM OF MERCURY WITH A MEAN GRAIDENT OF 15 MM OF MERCURY AND VR RATIO OF 0.44. 4) MODERATE AORTIC REGURGITATION. 5) MILD TRICUSPID REGURGITATION. RIGHT VENTRICULAR SYSTOLIC PRESSURE OF 34 MM OF MERCURY. 6) LEFT ATRIAL ENLARGEMENT. 7) LEFT VENTRICULAR HYPERTROPHY. 8) PROMINENT EPICARDIAL FAT - resolved - ASA - lipid panel reviewed from old records- 02/26/23 were good Code(s): R07.9 - CHEST PAIN, UNSPECIFIED (2) Pulmonary hypertension Current Visit: Yes Status: Acute Assessment & Plan: - as seen on CT - echo- reviewed - lasix 40 BID - tele - Continue home BP meds - F/U with Dr. Gregorio Code(s): I27.20 - PULMONARY HYPERTENSION, UNSPECIFIED (3) Pulmonary emphysema with fibrosis of lung Current Visit: Yes Status: Chronic Assessment & Plan: - follows Dr. Gregorio- Pulm - currently on 2LNC with O2 at 95% - PRN breathing treatments - CT chest 02/03 Impression: 1. Negative pulmonary embolus. No acute cardiopulmonary abnormalities. 2. Cardiomegaly with prominent pulmonary arteries favoring pulmonary hypertension. 3. Chronic findings including pulmonary emphysema, pulmonary fibrosis/scarring, arteriosclerotic disease, hiatal hernia, and chronic bony findings. - Referral for Pulm rehab sent Code(s): J43.9 - EMPHYSEMA, UNSPECIFIED; J84.10 - PULMONARY FIBROSIS, UNSPECIFIED (4) Acute kidney injury Current Visit: Yes Status: Resolved Assessment & Plan: - creat 1.11- likely from IV lasix - Lasix changed to home dose of PO - will need OP f/u Code(s): N17.9 - ACUTE KIDNEY FAILURE, UNSPECIFIED (5) correction (current) use of anticoagulants Current Visit: Yes Status: Acute Assessment & Plan: - Continue Eliquis 5mg BID - HX CABG x3 and stents Code(s): Z79.01 - INDUSTRIAL REHABILITATION CONSULTANT (CURRENT) USE OF ANTICOAGULANTS (6) Hypokalemia Current Visit: Yes Status: Acute Assessment & Plan: - K= 3.4- replaced - will send home with K+ replacement for 3 days - will need rechecked OP. Code(s): E87.6 - HYPOKALEMIA (7) Pain of left scapula Current Visit: Yes Status: Acute Assessment & Plan: - Most likely related to pulm fibrosis - Trop x3 negative - Tyelenol for pain and heating pad PRN Code(s): M89.8X1 - OTHER SPECIFIED DISORDERS OF BONE, SHOULDER - Discharge Discharge Date: 02/06/24 Disposition: Home, Self-Care Condition: Stable Prescriptions: Continue Apixaban [Eliquis] 5 mg PO BID Furosemide 40 mg [Lasix 40 MG] 40 mg PO DAILY Ezetimibe 10 mg [Zetia 10 MG] 10 mg PO DAILY Netarsudil Mesylate [Rhopressa] 1 drop DROPS UD Albuterol 2.5 mg/3 ml Neb [Proventil 2.5 mg/3 ml Neb] 2.5 mg NEB Q6- 8HPRN PRN PRN Reason: Shortness Of Breath Brimonidine Tartrate [Lumify] 1 drop DROPS UD Dorzolamide HCl/Timolol Maleat [Dorzolamide-Timolol Eye Drops] 1 drop DROPS UD Albuterol Sulfate [Proair Digihaler] 2 puffs IH Q6HPRN PRN PRN Reason: Shortness Of Breath Cetirizine HCl [Zyrtec] 10 mg PO HS Nitroglycerin 0.4 mg SL Q5MIN PRN MR X 3 PRN PRN Reason: Chest Pain Apremilast [Otezla] 30 mg PO HS Tiotropium [place] Inhaler [Spiriva 18 Mcg/Cap Inhaler] 2 puffs IH DAILY Isosorbide Mononitrate [Isosorbide Mononitrate ER] 60 mg PO DAILY Metoprolol Succinate 25 mg PO DAILY Additional Instructions: Please eat a low sodium diet, < 2 gm per day. Weight self daily. If you gain > 2 lbs in 1 day or 5lbs in 1 week please call cardiology. Follow up with: DANNIE KHALIL [CONSULTING PHYSICIAN] - 02/17/24 2:15 pm ALEXIA MICHELE NP [Primary Care Provider] - 02/17/24 10:30 am
[2024-02-06 11:35] VITALS: PULSE 70; RESP 20; TEMP 97.5; O2SAT 93
== END 2024-02-06 16:06 | disposition home or self-care (01) ==
LOC: ED 18:39 → MED SURG 02-05 01:27
PROVIDERS: ADMIT Internal Medicine Nephrology; ATTEND Internal Medicine Nephrology
DX: R07.9 Chest pain, unspecified (principal); I27.20 Pulmonary hypertension, unspecified; J43.9 Emphysema, unspecified; J84.10 Pulmonary fibrosis, unspecified; N17.9 Acute kidney failure, unspecified; E87.6 Hypokalemia; M54.9 Dorsalgia, unspecified; I11.0 Hypertensive heart disease with heart failure; I50.9 Heart failure, unspecified; E78.5 Hyperlipidemia, unspecified; Z79.01 Long term (current) use of anticoagulants; Z79.899 Other long term (current) drug therapy; Z95.0 Presence of cardiac pacemaker
CPT/HCPCS: 36000; 36415; 71260; 80053; 81001; 83735; 83880; 84484; 85025; 85027; 93005; 93041; 93268; 93306; 94640; 94760; 94762; 96374; 99285; G0378; Q3014; J1885; J1940; J7609; A9270-GY

== ENCOUNTER 2025-10-05 00:47 | Emergency (ER) | payer MEDICARE, OTHER ==
[2025-10-05 00:54] VITALS: TEMP 97.3
--- NOTE | 2025-10-05 01:02 | ERPHSYRPT ---
- History of Present Illness Time Seen by Provider: 10/05/25 00:49 Historian: patient Exam Limitations: no limitations Physician History: 80-year-old female presents to the emergency room with epigastric pain patient reports the pain has been constant for the past day and a half denies any nausea vomiting diarrhea denies any sick contact she does report shortness of breath associated with the pain Denies any recent travel or trauma denies any lower extremity swelling denies any urinary symptoms now in ED for further eval Timing/Duration: today Activities at Onset: none Quality: aching Abdominal Pain Onset Location: epigastric Pain Radiation: no radiation Severity of Pain-Max: mild Severity of Pain-Current: mild Modifying Factors: Improves With: nothing Associated Symptoms: shortness of breath Allergies/Adverse Reactions: carvedilol Allergy (Verified 10/05/25 00:58) niacin [From Niaspan Extended-Release] Allergy (Verified 10/05/25 00:59) nystatin Allergy (Verified 10/05/25 00:58) HIVES simvastatin [From Zocor] Allergy (Verified 10/05/25 00:58) Rmzhbir-IHC-MyW Reductase Inhibitor [Jfbinpl-Zaa-Ecm Reductase Inhibitor] Allergy (Verified 10/05/25 00:58) Home Medications: Apixaban [Eliquis] 5 mg PO BID 10/18/20 [History] Ezetimibe 10 mg [Zetia 10 MG] 10 mg PO DAILY 12/02/20 [History] Furosemide 40 mg [Lasix 40 MG] 40 mg PO DAILY 12/02/20 [History] Albuterol 2.5 mg/3 ml Neb [Proventil 2.5 mg/3 ml Neb] 2.5 mg NEB Q6-8HPRN PRN 02/04/24 [History] Albuterol Sulfate [Proair Digihaler] 2 puffs IH Q6HPRN PRN 02/04/24 [History] Brimonidine Tartrate [Lumify] 1 drop DROPS BID 02/04/24 [History] Cetirizine HCl [Zyrtec] 10 mg PO HS 02/04/24 [History] Dorzolamide HCl/Timolol Maleat [Dorzolamide-Timolol Eye Drops] 1 drop DROPS BID 02/04/24 [History] Netarsudil Mesylate [Rhopressa] 1 drop DROPS UD 02/04/24 [History] Nitroglycerin 0.4 mg SL Q5MIN PRN MR X 3 PRN 02/04/24 [History] Isosorbide Mononitrate [Isosorbide Mononitrate ER] 60 mg PO DAILY 02/05/24 [History] Alendronate Sodium 70 mg [Fosamax 70 MG] 1 tab PO WEEKLY 10/05/25 [History] Amlodipine Besylate 2.5 mg PO DAILY 10/05/25 [History] Fluticasone Furoate 50 mcg IH DAILY 10/05/25 [History] Fluticasone/Vilanterol [Breo Ellipta 200-25 Mcg Inhalr] 1 puff IH DAILY 10/05/25 [History] Guselkumab [Tremfya One-Press] 100 mg SQ Q30D 10/05/25 [History] Hydrocortisone 2.5% 30 gm [Anusol-Hc 2.5% Cream 30 gm] 1 appful TOP DAILY PRN PRN 10/05/25 [History] Ketoconazole Cream [Nizoral CREAM] 1 appful TOP BID PRN PRN 10/05/25 [History] Netarsudil Mesylate [Rhopressa] 1 drop DROPS HS 10/05/25 [History] Olopatadine HCl [Retaine Allergy] 1 drop DROPS DAILY 10/05/25 [History] Spironolactone 25 mg [Aldactone 25 MG] 12.5 mg PO DAILY 10/05/25 [History] Tiotropium [place] [Spiriva Respimat] 1.25 mcg IH DAILY 10/05/25 [History] Triamcinolone 0.1% Cream [Kenalog 0.1% Cream 15 gm] 1 appful .ROUTE DAILY 10/05/25 [History] Hx Tetanus, Diphtheria Vaccination/Date Given: Yes Hx Influenza Vaccination/Date Given: No Hx Pneumococcal Vaccination/Date Given: No Travel Risk - Emerging Infectious Disease Are you exhibiting symptoms associated with any current EIDs: No - Review of Systems Constitutional: No Fever, No Chills Eyes: No Symptoms Ears, Nose, & Throat: No Symptoms Respiratory: Dyspnea, No Cough Cardiac: Chest Pain, No Edema, No Syncope Abdominal/Gastrointestinal: No Abdominal Pain, No Nausea, No Vomiting, No Diarrhea Genitourinary Symptoms: No Dysuria Musculoskeletal: No Back Pain, No Neck Pain Skin: No Rash Neurological: No Dizziness, No Focal Weakness, No Sensory Changes Psychological: No Symptoms Endocrine: No Symptoms All Other Systems: Reviewed and Negative - Past Medical History Cardiac History: Congestive Heart Failure, High Cholesterol, Hypertension, Other Respiratory History: Asthma - Past Surgical History Past Surgical History: Yes Cardiac: CABG, Cardiac Catheterization Gastrointestinal: Appendectomy, Cholecystectomy, Hernia Repair Musculoskeletal: Joint Replacement, Orthopedic Surgery Female Surgical History: Hysterectomy, Section Other Surgical History: bilateral knees, L wrist with plate - Social History Smoking Status: Never smoker Drug Use: none - Social Determinants of Health Will the patient participate in the screening: Declined to provide - Nursing Vital Signs Nursing Vital Signs: Initial Vital Signs Temperature 97.3 F 10/05/25 00:48 Pulse Rate 84 10/05/25 00:48 Respiratory Rate 16 10/05/25 00:48 Blood Pressure 141/84 10/05/25 00:48 O2 Sat by Pulse Oximetry 92 L 10/05/25 00:48 Pain Scale Pain Intensity 0 - Physical Exam General Appearance: no apparent distress, alert Eye Exam: PERRL/EOMI, eyes nml inspection Ears, Nose, Throat Exam: normal ENT inspection, pharynx normal, moist mucous membranes Neck Exam: normal inspection, non-tender, supple, full range of motion Respiratory Exam: normal breath sounds, lungs clear, No respiratory distress Cardiovascular Exam: regular rate/rhythm, normal heart sounds Gastrointestinal/Abdomen Exam: soft, No tenderness, No mass Back Exam: normal inspection, normal range of motion, No CVA tenderness, No vertebral tenderness Extremity Exam: normal inspection, normal range of motion, pelvis stable Neurologic Exam: alert, oriented x 3, cooperative, normal mood/affect, nml cerebellar function, sensation nml, No motor deficits Skin Exam: normal color, warm, dry SpO2: 92 - Course EKG Interpreted by Me: RATE (74), A-fib, Non-specific ST Changes, Other (no STEMI) Ordered Tests: Active Orders 24 hr Category Date Time Status EKG-ER Only STAT Care 10/05/25 00:59 Completed IV Insertion STAT Care 10/05/25 00:59 Active CHEST 1 VIEW (PORTABLE) Stat Exams 10/05/25 00:59 Taken CHEST WITH CONTRAST [CT] Stat Exams 10/05/25 01:46 Completed BNPII [NT PRO BNPII] Stat Lab 10/05/25 01:15 Completed CBC W DIFF Stat Lab 10/05/25 01:15 Completed CMP Stat Lab 10/05/25 01:15 Completed D-DIMER QUANTITATIVE Stat Lab 10/05/25 01:15 Completed LIPASE Stat Lab 10/05/25 01:15 Completed Lactic Acid Stat Lab 10/05/25 01:12 Completed TROPONIN Q2H Lab 10/05/25 01:15 Completed TROPONIN Q2H Lab 10/05/25 03:00 Ordered UA W/RFX UR CULTURE Stat Lab 10/05/25 00:59 Ordered Incentive Spirometry STAT RT 10/05/25 04:13 Active Medication Summary Discontinued Medications Generic Name Dose Route Start Last Admin Trade Name Freq PRN Reason Stop Dose Admin Famotidine 20 mg 10/05/25 00:59 10/05/25 02:45 Famotidine 20 Mg/1 Vial IV 10/05/25 01:00 20 mg STAT ONE Administration Famotidine Confirm 10/05/25 02:14 Famotidine 20 Mg/1 Vial Administered 10/05/25 02:15 Dose 20 mg IV .STK-MED ONE Morphine Sulfate 4 mg 10/05/25 02:41 10/05/25 02:45 Morphine Sulfate 4 Mg/Ml Injection IV 10/05/25 02:42 4 mg STAT ONE Administration Morphine Sulfate Confirm 10/05/25 02:44 Morphine Sulfate 4 Mg/Ml Injection Administered 10/05/25 02:45 Dose 4 mg .ROUTE .STK-MED ONE Ondansetron HCl 4 mg 10/05/25 02:41 10/05/25 02:45 Ondansetron Hcl 4 Mg/2 Ml Vial IV 10/05/25 02:42 4 mg STAT ONE Administration Ondansetron HCl Confirm 10/05/25 02:44 Ondansetron Hcl 4 Mg/2 Ml Vial Administered 10/05/25 02:45 Dose 4 mg .ROUTE .STK-MED ONE Lab/Rad Data: Laboratory Result Diagrams 10/05/25 01:15 10/05/25 01:15 Laboratory Results 10/05/25 10/05/25 10/05/25 Range/Units 01:15 01:15 01:15 WBC (3.98-10.04) x10^3/uL RBC (3.93-5.22) x10^6/uL Hgb (11.2-15.7) g/dL Hct (34.1-44.9) % MCV (79.4-94.8) fL MCH (25.6-32.2) pg MCHC (32.2-35.5) g/dL RDW (11.7-14.4) % Plt Count (182-369) x10^3/uL MPV (9.4-12.3) fL Gran % (34.0-71.1) % Immature Gran % (Auto) (0.001-0.429) % Nucleat RBC Rel Count (0.00-0.2) % Eos # (Auto) (0.04-0.36) x10^3/uL Immature Gran # (Auto) (0.001-0.031) x10^3u/L Absolute Lymphs (auto) (1.18-3.74) x10^3/uL Absolute Monos (auto) (0.24-0.86) x10^3/uL Absolute Nucleated RBC (0.00-0.012) x10^3u/L Lymphocytes % (19.3-51.7) % Monocytes % (4.7-12.5) % Eosinophils % (0.7-5.8) % Basophils % (0.1-1.2) % Absolute Granulocytes (1.56-6.13) x10^3/uL Basophils # (0.01-0.08) x10^3/uL D-Dimer 1.58 H* (0.0-0.50) mg/L Sodium (135-145) mmol/L Potassium (3.5-5.1) mmol/L Chloride (98-107) mmol/L Carbon Dioxide (22-30) mmol/L Anion Gap (5-15) MEQ/L BUN (7-17) mg/dL Creatinine (0.52-1.04) mg/dL Estimated GFR ML/MIN Glucose (74-106) mg/dL Lactic Acid (0.4-2.0) Calcium (8.4-10.2) mg/dL Total Bilirubin (0.2-1.3) mg/dL AST (14-36) U/L ALT (0-35) U/L Alkaline Phosphatase (38-126) U/L Troponin I (0.000-0.033) ng/mL NT-Pro-B Natriuret Pep 217 (<300) pg/mL Serum Total Protein (6.3-8.2) g/dL Albumin (3.5-5.0) g/dL Lipase (23-300) U/L Influenza Type A Ag NEGATIVE (NEGATIVE) Influenza Type B Ag NEGATIVE (NEGATIVE) RSV (PCR) NEGATIVE (NEGATIVE) SARS-CoV-2 (PCR) NEGATIVE (NEGATIVE) 10/05/25 10/05/25 10/05/25 Range/Units 01:15 01:15 01:15 WBC 12.5 H (3.98-10.04) x10^3/uL RBC 4.59 (3.93-5.22) x10^6/uL Hgb 13.9 (11.2-15.7) g/dL Hct 42.3 (34.1-44.9) % MCV 92.2 (79.4-94.8) fL MCH 30.3 (25.6-32.2) pg MCHC 32.9 (32.2-35.5) g/dL RDW 13.5 (11.7-14.4) % Plt Count 273 (182-369) x10^3/uL MPV 10.4 (9.4-12.3) fL Gran % 72.3 H (34.0-71.1) % Immature Gran % (Auto) 0.5 H (0.001-0.429) % Nucleat RBC Rel Count 0.0 (0.00-0.2) % Eos # (Auto) 0.37 H (0.04-0.36) x10^3/uL Immature Gran # (Auto) 0.06 H (0.001-0.031) x10^3u/L Absolute Lymphs (auto) 1.56 (1.18-3.74) x10^3/uL Absolute Monos (auto) 1.40 H (0.24-0.86) x10^3/uL Absolute Nucleated RBC 0.00 (0.00-0.012) x10^3u/L Lymphocytes % 12.5 L (19.3-51.7) % Monocytes % 11.2 (4.7-12.5) % Eosinophils % 3.0 (0.7-5.8) % Basophils % 0.5 (0.1-1.2) % Absolute Granulocytes 9.08 H (1.56-6.13) x10^3/uL Basophils # 0.06 (0.01-0.08) x10^3/uL D-Dimer (0.0-0.50) mg/L Sodium 133 L (135-145) mmol/L Potassium 3.5 (3.5-5.1) mmol/L Chloride 92 L (98-107) mmol/L Carbon Dioxide 32 H (22-30) mmol/L Anion Gap 13.3 (5-15) MEQ/L BUN 27 H (7-17) mg/dL Creatinine 0.97 (0.52-1.04) mg/dL Estimated GFR 58.7 ML/MIN Glucose 101 (74-106) mg/dL Lactic Acid (0.4-2.0) Calcium 9.8 (8.4-10.2) mg/dL Total Bilirubin 1.40 H (0.2-1.3) mg/dL AST 22 (14-36) U/L ALT 18 (0-35) U/L Alkaline Phosphatase 89 (38-126) U/L Troponin I 0.015 (0.000-0.033) ng/mL NT-Pro-B Natriuret Pep (<300) pg/mL Serum Total Protein 7.4 (6.3-8.2) g/dL Albumin 4.1 (3.5-5.0) g/dL Lipase 79 (23-300) U/L Influenza Type A Ag (NEGATIVE) Influenza Type B Ag (NEGATIVE) RSV (PCR) (NEGATIVE) SARS-CoV-2 (PCR) (NEGATIVE) 10/05/25 Range/Units 01:12 WBC (3.98-10.04) x10^3/uL RBC (3.93-5.22) x10^6/uL Hgb (11.2-15.7) g/dL Hct (34.1-44.9) % MCV (79.4-94.8) fL MCH (25.6-32.2) pg MCHC (32.2-35.5) g/dL RDW (11.7-14.4) % Plt Count (182-369) x10^3/uL MPV (9.4-12.3) fL Gran % (34.0-71.1) % Immature Gran % (Auto) (0.001-0.429) % Nucleat RBC Rel Count (0.00-0.2) % Eos # (Auto) (0.04-0.36) x10^3/uL Immature Gran # (Auto) (0.001-0.031) x10^3u/L Absolute Lymphs (auto) (1.18-3.74) x10^3/uL Absolute Monos (auto) (0.24-0.86) x10^3/uL Absolute Nucleated RBC (0.00-0.012) x10^3u/L Lymphocytes % (19.3-51.7) % Monocytes % (4.7-12.5) % Eosinophils % (0.7-5.8) % Basophils % (0.1-1.2) % Absolute Granulocytes (1.56-6.13) x10^3/uL Basophils # (0.01-0.08) x10^3/uL D-Dimer (0.0-0.50) mg/L Sodium (135-145) mmol/L Potassium (3.5-5.1) mmol/L Chloride (98-107) mmol/L Carbon Dioxide (22-30) mmol/L Anion Gap (5-15) MEQ/L BUN (7-17) mg/dL Creatinine (0.52-1.04) mg/dL Estimated GFR ML/MIN Glucose (74-106) mg/dL Lactic Acid 1.4 (0.4-2.0) Calcium (8.4-10.2) mg/dL Total Bilirubin (0.2-1.3) mg/dL AST (14-36) U/L ALT (0-35) U/L Alkaline Phosphatase (38-126) U/L Troponin I (0.000-0.033) ng/mL NT-Pro-B Natriuret Pep (<300) pg/mL Serum Total Protein (6.3-8.2) g/dL Albumin (3.5-5.0) g/dL Lipase (23-300) U/L Influenza Type A Ag (NEGATIVE) Influenza Type B Ag (NEGATIVE) RSV (PCR) (NEGATIVE) SARS-CoV-2 (PCR) (NEGATIVE) - Progress Progress Note: 10/05/25 01:04 Patient uses 2 L of oxygen at baseline at night she also uses breathing treatments however she does not give herself a breathing treatments evening patient was given Zofran and fentanyl by EMS prior to arrival 10/05/25 04:06 Imaging Report Continued Page: Name: NADEEM HOLBROOK Procedure Date: 10/05/25 Procedures: [id number] CT/CHEST WITH CONTRAST Technologist: Portia Gomez Transcribed: 10/05/25402 Java Lead Engineer: EAGLE [place] MD Printed: 10/05/25402 Page: Imaging Report [~ rep ct labl] Technologist: Portia Gomez Transcribed: 10/05/25402 Java Lead Engineer: EAGLE [place] MD Printed: 10/05/25402 Page: Imaging Report [~ rep ct labl] [place] [id number] Name: NADEEM HOLBROOK Attending Physician: Ordering Physician: GARO AYALA IMAGING REPORT : 1945 Age: 80 Sex: F Location: ED Report #: [id number] Exam Date: 10/05/25 Status: REG ER Procedures: [id number] CT/CHEST WITH CONTRAST CLINICAL HISTORY: sob, pain, dimer + COMPARISON: None. TECHNIQUE: Contiguous axial images were obtained from the neck base through the upper abdomen following intravenous administration of contrast material. If IV contrast material had not been administered, the likelihood of detecting abnormalities relevant to the patient's condition would have been substantially decreased. In addition, sagittal and coronal reconstructions were performed. CT scan was performed according to ALARA (as low as reasonably achievable). FINDINGS: Mild dilatation of pulmonary trunk, bilateral main pulmonary artery up to subsegmental level with mild tortuosity - suggests possibility of pulmonary arterial hypertension. A few atelectatic bands are noted involving bilateral lung bases and lingula. The remaining lungs are clear. The bladder is normal in contour with thickened castillo. No pulmonary nodules are seen. The central airways are patent. There are no pleural effusions. No pneumothorax is seen. No axillary, hilar, or mediastinal adenopathy is identified. The visualized thyroid is unremarkable. The heart and aorta are of normal size and configuration. No pericardial effusion is identified. Imaged portions of the upper abdomen are unremarkable. Multiple level spine end plate irregularity, sclerosis. Wedging of D3, D4 vertebra. Stable. IMPRESSION: Mild dilatation of pulmonary trunk, bilateral main pulmonary artery up to subsegmental level with mild tortuosity - suggests possibility of pulmonary arterial hypertension. Cardiomegaly- stable. A few atelectatic bands are noted involving bilateral lung bases and lingula. - stable. Previous right lower lobar ground-glass opacities are resolved. No obvious pulmonary embolism. Patient has no evidence of PE the right lower lobe ground glass opacities are now resolved patient does have pulmonary arterial hypertension and cardiomegaly which is stable patient has known history of pulmonary artery hypertension patient will be given incentive spirometer patient was given pain control for previous history of wedging of T3-T4 vertebrae ALEXIA MICHELE - Departure Departure Disposition: Home Clinical Impression: Pulmonary artery hypertension, Atelectasis Chest pain Qualifiers: Chest pain type: unspecified Qualified Code(s): R07.9 - Chest pain, unspecified Condition: Stable Critical Care Time: No Referrals: ALEXIA MICHELE, ROBERT [Primary Care Provider, [facility]] - Follow up/PCP as directed Instructions: Chest pain, Atelectasis, How to use an incentive spirometer
[2025-10-05 01:18] LABS: BASOPHIL % 0.5 % (0.1-1.2); Basophil (Absolute #) 0.06 x10^3/uL (0.01-0.08); Eosinophil (Absolute #) 0.37 x10^3/uL (0.04-0.36); Hematocrit 42.3 % (34.1-44.9); Hemoglobin 13.9 g/dL (11.2-15.7); IMMATURE GRAN # 0.06 x10^3u/L (0.001-0.031); IMMATURE GRAN % 0.5 % (0.001-0.429); Lymphocyte (Absolute #) 1.56 x10^3/uL (1.18-3.74); Mean Corpuscular Hemoglobin 30.3 pg (25.6-32.2); Mean Corpuscular Hgb Concent. 32.9 g/dL (32.2-35.5); Monocyte (Absolute #) 1.40 x10^3/uL (0.24-0.86); NUCLEATED RBC # 0.00 x10^3u/L (0.00-0.012); NUCLEATED RBC % 0.0 % (0.00-0.2); Platelet Count 273 x10^3/uL (182-369); Red Blood Count 4.59 x10^6/uL (3.93-5.22); White Blood Count 12.5 x10^3/uL (3.98-10.04)
[2025-10-05 01:35] LABS: Calcium 9.8 mg/dL (8.4-10.2); Carbon Dioxide 32.0 mmol/L (22-30); Creatinine 1 0.97 mg/dL (0.52-1.04); EST GLOMERULAR FILTRATION RATE 58.7 ML/MIN; Glucose 101.0 mg/dL (74-106); Potassium 3.5 mmol/L (3.5-5.1); SGOT/AST 22.0 U/L (14-36); SGPT/ALT 18.0 U/L (0-35); Total Protein 7.4 g/dL (6.3-8.2)
[2025-10-05 01:56] LABS: INFLUENZA A NEGATIVE (NEGATIVE); INFLUENZA B NEGATIVE (NEGATIVE); RESPIRATORY SYNCTIAL VIRUS NEGATIVE (NEGATIVE); SARS-CoV-2 Xpert Express NEGATIVE (NEGATIVE)
[2025-10-05] MEDS ORDERED: Pepcid 20 MG VIAL IV ONE (02:14)
[2025-10-05] MEDS ORDERED: MORPHINE SULFATE 4 MG INJ ONE (02:44)
[2025-10-05] MEDS ORDERED: Zofran 4 MG/2 ML VIAL ONE (02:44)
[2025-10-05] MEDS: MORPHINE SULFATE 4 MG INJ IV ONE (02:45)
[2025-10-05] MEDS: Pepcid 20 MG VIAL IV ONE (02:45)
[2025-10-05] MEDS: Zofran 4 MG/2 ML VIAL IV ONE (02:45)
--- NOTE | 2025-10-05 04:04 | XRAY ---
CLINICAL HISTORY: sob, pain, dimer + COMPARISON: None. TECHNIQUE: Contiguous axial images were obtained from the neck base through the upper abdomen following intravenous administration of contrast material. If IV contrast material had not been administered, the likelihood of detecting abnormalities relevant to the patient's condition would have been substantially decreased. In addition, sagittal and coronal reconstructions were performed. CT scan was performed according to ALARA (as low as reasonably achievable). FINDINGS: Mild dilatation of pulmonary trunk, bilateral main pulmonary artery up to subsegmental level with mild tortuosity - suggests possibility of pulmonary arterial hypertension. A few atelectatic bands are noted involving bilateral lung bases and lingula. The remaining lungs are clear. The bladder is normal in contour with thickened castillo. No pulmonary nodules are seen. The central airways are patent. There are no pleural effusions. No pneumothorax is seen. No axillary, hilar, or mediastinal adenopathy is identified. The visualized thyroid is unremarkable. The heart and aorta are of normal size and configuration. No pericardial effusion is identified. Imaged portions of the upper abdomen are unremarkable. Multiple level spine end plate irregularity, sclerosis. Wedging of D3, D4 vertebra. Stable. IMPRESSION: Mild dilatation of pulmonary trunk, bilateral main pulmonary artery up to subsegmental level with mild tortuosity - suggests possibility of pulmonary arterial hypertension. Cardiomegaly- stable. A few atelectatic bands are noted involving bilateral lung bases and lingula. - stable. Previous right lower lobar ground-glass opacities are resolved. No obvious pulmonary embolism. Electronically Signed by: Kb Mauricio MD. (10/05/2025 04:03:55 EST)
[2025-10-05 04:49] LABS: Glucose, Urine Negative (Negative); Protein,Urine Dip Negative (Negative); RBC 0-2 /HPF (0-5); WBC 0-2 /HPF (0-5)
[2025-10-05 05:03] VITALS: BP 137/85; PULSE 82; RESP 15; O2SAT 96
[2025-10-05] MEDS ORDERED: NORCO 5/325 MG ONE (05:06)
[2025-10-05] MEDS: NORCO 5/325 MG PO ONE (05:07)
--- NOTE | 2025-10-05 06:48 | XRAY ---
Indication: Epigastric pain. Comparison: October 18, 2020 Portable chest again demonstrates cardiomegaly and CABG surgery. Lungs inflated without focal infiltrate, consolidation, or large effusion. Bony thorax intact again with osteopenia and mild degenerative changes. Impression: Again chronic findings including cardiomegaly and chronic bony findings. No new/acute findings.
== END 2025-10-05 05:20 | disposition home or self-care (01) ==
LOC: ED 00:47
DX: I27.21 Secondary pulmonary arterial hypertension (principal); J98.11 Atelectasis; R07.9 Chest pain, unspecified; R10.13 Epigastric pain; R06.02 Shortness of breath; I11.0 Hypertensive heart disease with heart failure; I50.9 Heart failure, unspecified; Z79.01 Long term (current) use of anticoagulants; Z79.899 Other long term (current) drug therapy